=== PATIENT | female | born 1965 | race Caucasian/White ===

== ENCOUNTER → 2017-03-07 | Outpatient (CLI) | payer BC | END | disposition home or self-care (01) | LOC: C.PAPS 11:30 | PROVIDERS: ATTEND Physician Assistant | DX: Z01.419 Encounter for gynecological examination (general) (routine) without abnormal findings (principal) ==

== ENCOUNTER → 2017-03-07 | Outpatient (CLI) | payer BC ==
--- NOTE | 2017-03-07 14:37 | MAMMOGRAPHY REPORT ---
BILATERAL DIGITAL DIAGNOSTIC MAMMOGRAM TOMOSYNTHESIS WITH CAD AND TARGETED LEFT ULTRASOUND: 03/07/2017 CLINICAL HISTORY: 52-year-old woman presents after she felt a lump in the approximate 2:00 left breas t a few weeks ago. However, she no longer feels the lump. No skin erythema or nipple discharge. No family history of breast cancer. Also due for annual bilateral screening exam. TECHNIQUE: Bilateral breast tomosynthesis in addition to standard 2D mammography was performed. Curre nt study was also evaluated with a Computer Aided Detection (CAD) system. COMPARISON: Comparison is made to exams dated: 06/05/2015 mammogram, 05/06/2014 ultrasound, 05/06/20 14 mammogram, 04/23/2014 mammogram - [facility], 06/20/2012 mammogram, and 02/03/2011 mammogram - [facility]. BREAST COMPOSITION: There are scattered areas of fibroglandular density in both breasts. Mild invol utional changes comparing to more remote prior mammograms. FINDINGS: There are a few scattered benign-appearing round microcalcifications in the breasts. No ne w suspicious mass, architectural distortion or cluster of microcalcifications is seen. Targeted ultrasound was performed in the area of prior lump in the upper outer posterior left breast. Scanning of the left axilla, 1:00, 2:00 and 3:00 axes was performed. Morphologically normal lymph nodes are seen in the left axilla. No suspicious solid or cystic mass is seen within the visualized left breast. IMPRESSION: ACR BI-RADS CATEGORY 2: BENIGN, TARGETED ULTRASOUND ACR BI-RADS CATEGORY 2: BENIGN Stable bilateral mammograms. There is no mammographic or targeted sonographic evidence of malignancy in the left breast. Continued clinical follow-up is recommended, as biopsy of a clinically suspicio us mass should not be precluded by negative imaging. Otherwise, a 1 year screening mammogram is patito mmended. The patient has been verbally notified of the results. Approximately 10% of breast cancers are not detected with mammography. A negative mammographic report should not delay biopsy if a clinically suggestive mass is present. Riddhi Serrato M.D. ay/:03/07/2017 10:16:22 College Tutor: Nory ALEMAN)(Maria Esther), [facility] letter sent: Normal /2 BI-RADS Code: ACR BI-RADS Category 2: Benign Ultrasound BI-RADS: ACR BI-RADS Category 2: Benign
== END | disposition home or self-care (01) ==
LOC: C.MAMM 09:35
PROVIDERS: ATTEND Physician Assistant
DX: Z01.419 Encounter for gynecological examination (general) (routine) without abnormal findings (principal); N63 Unspecified lump in breast

== ENCOUNTER → 2017-07-21 | Outpatient (CLI) | payer BC ==
--- NOTE | 2017-07-21 17:14 | DIAGNOSTIC IMAGING REPORT ---
C-SPINE ROUTINE 4 OR 5 VIEWS CLINICAL HISTORY: 52 years-old Female presenting with CERVICALGIA, BALANCE DISORDER. TECHNIQUE: Lateral, bilateral oblique, frontal, and open-mouth odontoid views of the cervical spine were obtained. COMPARISON: None. FINDINGS: Straightening of normal cervical lordosis likely positional. Vertebral bodies maintain normal height and alignment. Mild intervertebral disc height loss noted at C5-6 and C6-7, where there are disc osteophyte complexes. Normal atlantodental interval. No prevertebral soft tissue swelling. No osseous neural foraminal narrowing. Lateral masses of C1 articulate normally with C2. No radiographic evidence of acute fracture or subluxation. IMPRESSION: Mild degenerative changes focally at C5-6 and C6-7. No acute osseous injury. Electronically signed by: Dante Mckenzie M.D. 07/21/2017 5:12 PM Dictated Date/Time: 07/21/2017 5:08 PM
== END | disposition home or self-care (01) ==
LOC: C.RAD 16:44
PROVIDERS: ATTEND Nurse Practitioner Family
DX: M54.2 Cervicalgia (principal); R26.89 Other abnormalities of gait and mobility; R20.9 Unspecified disturbances of skin sensation

== ENCOUNTER 2023-12-08 11:30 | Observation (INO) ==
--- NOTE | 2023-12-05 10:56 | Anesthesiology Consultation ---
Date of Service December 05, 2023 Assessment & Plan (1) Encounter for pre-operative examination: - Infectious disease screening: Per assessment on 12/05/23: No known infectious disease contacts or current infectious disease symptoms. No noted recent Covid positive test result. - Cardiology note (12/01/23): "Ms. Bhandari is not having any chest pain or sob. She had a stress echo within the year that was negative for ischemic disease. She is low risk for cardiac complication perioperatively. She does not need further cardiac testing prior to her surgery." - PCP visit (12/01/23): "Pt to have fractured clavicle repaired on 12/08/23.. She has brought to my attention that her father has hx of factor V mutation. Will order testing as she may need to be on anticoag post op to prevent VTE if she is not up and moving as well. I have sent message for nursing to authorize this test so we can hopefully get it done prior to her surgery on 12/08/23.. Estimated risk of adverse outcome with non-cardiac surgery very low risk.. Will addend this note once factor V testing is done and if further recommendations are warranted." - Factor V Deficiency: Recent diagnosis > Patient tested 11/2023 d/t family history (father). Per PCP note (12/06/23): "At [place]'s preop she mentions her father was positive for factor V Leiden gene. I had her tested and she is positive. I know she is having a clavicle fx repaired but still concerned that she may not be as mobile at first due to pain etc... I have sent in econsult to [facility] to see if they feel she should be anticoagulated for short period of time after surgery. I will keep you up-to-date.. as I know she is scheduled for the end of this week" - Patient acceptable risk for surgery pending final PCP recommendations (Juana CRONIN). Chart Review Chart Review: Patient NOT seen in Pre Admission Testing History Surgery Operation Date: 12/08/23 13:30 Proposed Procedures p Left Clavicle Open Reduction Internal Fixation - Clinton Andrez Frey MD Height/Weight Height: 5 ft 6 in Weight: 67.132 kg Allergies Allergy/AdvReac Type Severity Reaction Status Date / Time azithromycin AdvReac Mild Nausea Verified 12/05/23 08:09 [From Zithromax Z-Horacio] Medications Home Medications Medication Instructions Recorded Confirmed Last Taken cholecalciferol (vitamin D3) 25 25 mcg PO DAILY 12/29/22 12/05/23 Unknown mcg (1,000 unit) capsule mecobalamin (vitamin B12) 1,000 1,000 mcg PO DAILY 12/29/22 12/05/23 Unknown mcg chewable tablet venlafaxine 25 mg tablet 12.5 mg PO QAM 06/21/23 12/05/23 Unknown Past Medical History Medical History Benign paroxysmal positional vertigo Occasional, "cannot lay flat" Breast mass, left Cyst, under annual mammogram surveillance Cervical radiculopathy Cervicalgia Occasional Chronic rhinitis Closed fracture of left clavicle (11/29/23) Factor V deficiency Recent diagnosis- Patient tested 11/2023 d/t family history (father) GERD without esophagitis History of anxiety Reason for Venlafaxine recently passed unexpectedly History of colon polyps History of COVID-19 x2, symptoms resolved History of tachycardia Follows with Dr. Millicent Reddy on hold d/t nausea reaction- patient states cardio aware/recommends restarting after upcoming surgery Hx of gastroesophageal reflux (GERD) Wheatfield-Schlatter's disease of both knees Chronic knee pain (L>R) Paresthesias in left hand R/t fall/left clavicle fracture Past Family History Family History Father Factor V Leiden mutation Dyslipidemia Cancer Adverse anesthesia outcome Sister Factor V Leiden mutation Mother Hypertension Thyroid disease Denies family history of Ovarian cancer Breast cancer Colorectal cancer Past Surgical History Surgical History History of endometrial biopsy History of laparoscopy Hx of colonoscopy with polypectomy Social History Smoking Status: Never smoker Do You Dip or Chew Tobacco: No Hx Alcohol Use: No Hx Substance Use: No substance use type: does not use Testing Laboratory Results 12/04/23 WBC 6.80 H/H 13.5/39.2 PLATELETS 385 SODIUM 141 POTASSIUM 3.9 CHLORIDE 106 CO2 26 BUN 17 CREATININE 0.84 GLUCOSE 127 Electrocardiogram Date: 01/16/23 NSR at 89bpm. Mild NS STA. Chest X-Ray Date: 11/29/23 FINDINGS: Lung volumes are normal. Lungs are clear. There is no pneumothorax or pleural effusion. Cardiac size is normal. Mediastinal contours are normal. There is no evidence for pulmonary edema. There is an acute appearing comminuted displaced midshaft fracture of the left clavicle. Fracture is displaced 2.9 cm. IMPRESSION: No acute cardiopulmonary findings. Acute appearing comminuted displaced midshaft fracture of the left clavicle. Stress Test Date: 02/21/23 Negative exercise stress echo/ECG for ischemia 106% MPHR. 9.4 METS. EF 65-70%. No LVH. Other Testing Clavical x-ray, Left Date: 11/29/23 FINDINGS: Comminuted fracture of the left mid clavicle. Soft tissue swelling is seen. IMPRESSION: Comminuted fracture of the left mid third of the clavicle. Left UE US venous doppler Date: 11/29/23 FINDINGS/IMPRESSION: There is normal compressibility of the deep venous system from the forearm through the subclavian vein. Normal vascular flow is currently identified. Lymph node adjacent to the internal jugular vein measures 1.5 x 0.6 x 0.3 cm, not enlarged.
--- NOTE | 2023-12-08 11:46 | Operative Report ---
Post Operative Report Pre & Post Diagnosis Operation Date: 12/08/23 13:30 <No data on this case meets the specified criteria> I identified the patient and participated in the time-out.: Yes Procedure Operation Date: 12/08/23 13:30 <No data on this case meets the specified criteria> Surgeon Dr Frey Dishwashing Machine Operator Annabel DURBIN Estimated Blood Loss 20 Findings Consistent with Post-Op Diagnosis Specimens none Description of Procedure Pt was taken to operating room and properly positioned for procedure. Refer to anesthesia's note for anesthesia used. Pt was given pre-op antibiotics. Prepped and draped in sterile fashion. I was present during the entire case and assisted with positioning, instrumentation, closure and dressings. Please see surgeon's op report for further detail. Pt was awake and transferred to PACU in stable condition I attest to the content of the Intraoperative Record and any orders documented therein. Any exceptions are noted below.
[2023-12-08] MEDS: LR 15ML/HR IV SCH (12:22)
--- NOTE | 2023-12-08 12:48 | History & Physical Bridge Note ---
Date of Service December 08, 2023 History & Physical Bridge Note I have examined the patient, reviewed the History & Physical and in the interval since the performance of the History & Physical I have noted the following changes of clinical significance: no changes noted other than recent diagnosis for Factor V Leiden
[2023-12-08] MEDS ORDERED: fentaNYL citrate PF 100 MCG/2 ML VIAL ONE (12:55)
[2023-12-08] MEDS ORDERED: MIDAZOLAM HCL 1 MG/ML 2ML VIAL ONE (12:55)
[2023-12-08] MEDS ORDERED: FLUMAZENIL 0.1 MG/1 ML 10 ML VIAL IV PRN (13:01)
[2023-12-08] MEDS ORDERED: PROMETHAZINE HCL 6.25 MG in SODIUM CHLORIDE 0.9% 50 ML IV PRN (13:01)
[2023-12-08] MEDS ORDERED: NALOXONE HCL 0.4 MG/1 ML VIAL/CARP IV PRN ×2 (13:01→19:02)
[2023-12-08] MEDS ORDERED: ePHEDrine sulfate 50 MG/ML AMP IV PRN (13:01)
[2023-12-08] MEDS ORDERED: HYDROmorphone INJ 1 MG/ML SYRINGE IV PRN (13:01)
[2023-12-08] MEDS ORDERED: ATROPINE SULFATE 0.1 MG/ML 10ML SYR IV PRN (13:01)
[2023-12-08] MEDS ORDERED: fentaNYL citrate PF 100 MCG/2 ML VIAL IV PRN (13:01)
[2023-12-08] MEDS: ceFAZolin 2000MG 2,000 MG/15 ML SYR IV SCH (13:27)
[2023-12-08] MEDS ORDERED: DexMEDEtomidine HCL IV 100 MCG/ML VIAL IV ONE (13:38)
[2023-12-08] MEDS ORDERED: PROPOFOL IV EMULSION 10 MG/ML 20 ML VIAL IV ONE (13:48)
[2023-12-08] MEDS ORDERED: ONDANSETRON INJ 2 MG/ML 2 ML VIAL ONE (13:48)
[2023-12-08] MEDS ORDERED: HYDROmorphone INJ 2 MG/ML SYR/VIAL ONE (13:48)
[2023-12-08] MEDS ORDERED: ROCURONIUM BROMIDE 10 MG/ML 5 ML VIAL IV ONE (13:48)
[2023-12-08] MEDS ORDERED: DEXAMETHASONE SOD INJ 4 MG/ML VIAL ONE (13:48)
[2023-12-08] MEDS ORDERED: KETAMINE HCL 10MG/ML SYR ONE (13:51)
[2023-12-08] MEDS: BUPIVACAINE 0.5 % 5 MG/1 ML MPF 30ML VIAL ONE (14:05)
[2023-12-08] MEDS ORDERED: PHENYLEPHRINE 100MCG/ML 10ML SYR IV ONE (14:06)
[2023-12-08] MEDS ORDERED: SUGAMMADEX SODIUM 200 MG/2 ML VIAL IV ONE (15:15)
--- NOTE | 2023-12-08 15:42 | Post Operative Brief Note ---
Immediate Post Op Note v1 Date of Surgery December 08, 2023 Pre & Post Diagnosis Operation Date: 12/08/23 13:30 Pre-Op Diagnosis: Left Midshaft Clavicle Fracture Post-Op Diagnosis: Left Midshaft Clavicle Fracture I identified the patient and participated in the time-out.: Yes Procedure Operation Date: 12/08/23 13:30 Actual Procedures p Left Clavicle Open Reduction Internal Fixation(Left) - Clinton Frey MD Surgeon Clinton Frey MD Tag Meter Operator A MD Genny & M ZEESHAN Mata Estimated Blood Loss 50 Findings Consistent with Post-Op Diagnosis Fluids 1200 cc Anesthesia Type General Complications none
--- NOTE | 2023-12-08 15:44 | Operative Report ---
Post Operative Report Pre & Post Diagnosis Operation Date: 12/08/23 13:30 Pre-Op Diagnosis: Left Midshaft Clavicle Fracture, comminuted, Z-pattern Post-Op Diagnosis: Left Midshaft Clavicle Fracture, comminuted, Z-pattern I identified the patient and participated in the time-out.: Yes Procedure Operation Date: 12/08/23 13:30 Actual Procedures p Left Clavicle Open Reduction Internal Fixation(Left) - Clinton Frey MD Surgeon Clinton Frey MD Feller Operator A MD Genny & M ZEESHAN Mata Estimated Blood Loss 50 Findings See Below Left mid-shaft clavicle fracture, comminuted with 2 small butterfly fragments, in a displaced Z-pattern Fluids 1200 cc Specimens n/a Anesthesia Type General Complications none Indications The patient is a pleasant 58-year-old female, who fell and injured their left clavicle. Their treatment options of conservative surgical intervention were discussed. The risks of surgery include but not limited to: Infection, bleeding, nerve damage, need for repeat surgery, damage to nerves and arteries, mal-union, nonunion, decreased level of activity, deep vein thrombosis, and a pneumothorax. The patient wanted to proceed with surgery and the informed consent was signed. Description of Procedure IMPLANTS: 1) 8 hole mid-shaft clavicle plate (Arthrex). 2) 3.5 mm cortical screws (12 & 14 mm). 3) 3.5 mm locking screws (12 x 3, 18 mm). PROCEDURE: The patient was taken to the operating room following administration of general anesthesia. The patient was placed in the beach chair position. Fluoroscopy was brought in to ensure that the x-rays could be obtained during the case. Once the patient was properly positioned, a multidisciplinary time-out was performed identifying the proper patient and left upper extremity as the correct and operative limb. The upper extremity was prepped and draped in the usual orthopedic sterile fashion. 2 g of intravenous Ancef were given prior to any incisions being made. The clavicle fracture was easily identified and marked, as well as the acromion, AC and SC joints. The planned incision approximately 10 cm long was marked as well and injected with a 50-50 mixture of 1% lidocaine plain and 0.5% Marcaine with epinephrine for a total of 10 cc. Sharp dissection was performed and the medial fragment was easily identified and exposed first. Any hematoma and callus was removed from the fracture ends with irrigation, rongeur, and dental pick. The wound was copiously irrigated. The 2 butterfly fragments were anterior, the larger of the 2 still had soft tissue attachment. The smaller fragment was removed and cut into smaller pieces to be used as bone graft at the end of the case. The lateral fracture fragment was inferior to the medial fragment and was exposed. After the 2 ends were exposed, using a lion-jaw clamp on the medial fragment and a pointed reduction clamp on the lateral fragment these were reduced, a K wire was placed to provide temporary fixation. A plate was selected and was contoured to fit the clavicle and 2 be-be tacks were used to hold the plate in place. Fluoroscopy was brought in to ensure proper placement of the plate and near anatomic reduction. Once this was achieved, the screws were placed, starting with a 3.5 mm non-locking screws on the medial fragment followed by one in the lateral fragment. The 3.5 locking screws were placed in the remainder of the lateral holes in the plate and then 3.5 mm locking screw were placed in the most medial holes of the plate. The wounds were again copiously irrigated. An 0 vicryl suture was used to cerclage the remaining inferior butterfly fragment in place. Final x-rays were obtained. The wound was again copiously irrigated. The deep tissue overlying the bone and plate was closed with 0 and 2-0 Vicryl. The platysma was closed with 3-0 Vicryl as was the subcutaneous layer. ZipLine and shield were used in standard fashion to close the skin. The incision was covered with 4 x 4's and Tegaderm. The patient was placed in a sling. The patient was awakened and taken to the recovery room in stable condition. POSTOPERATIVE INSTRUCTIONS: The patient will avoid any heavy lifting. The patient will take pain medicine as needed. Due to their recent Factor V Leiden diagnosis they will start Eliquis tonight and continue for 2 weeks for DVT prophylaxis. The patient will will start PT next week. The patient will follow- up in 10-14 days in the office. I attest to the content of the Intraoperative Record and any orders documented therein. Any exceptions are noted below.
[2023-12-08] MEDS ORDERED: NEOSTIGMINE METHYLSULFATE 1 MG/ML 10ML VIAL ONE (15:55)
[2023-12-08] MEDS ORDERED: GLYCOPYRROLATE 0.2 MG/ML VIAL ONE (15:55)
[2023-12-08] MEDS: LIDOCAINE 1%/EPINEPHRINE 1:100,000 20 ML VIAL ONE (16:05)
--- NOTE | 2023-12-08 16:06 | Fluoroscopy Report ---
INTRAOPERATIVE RADIOGRAPHS CLINICAL HISTORY: Open reduction and internal fixation of the left clavicle. Fluoro time: 6 seconds Ka,r: 0.25 mGy FINDINGS: 2 spot fluoroscopic views of the left clavicle are correlated with radiographs dated 11/29/19 24. There has been buttress plate fixation of a left clavicular shaft fracture with advent of ne ar-anatomic alignment. 6 cortical screw transfix the plate. Overlying soft tissue edema is noted. An endotracheal tube is in place. IMPRESSION: Intraoperative images from open reduction and internal fixation of a left clavicular shaf t fracture as above. Electronically signed by: Jhonny Saxena M.D. 12/08/2023 4:04 PM
[2023-12-08] MEDS ORDERED: oxyCODONE/ACETAMINOPHEN 5mg/325mg TAB PO PRN (16:24)
--- NOTE | 2023-12-08 16:24 | Operative Report ---
Post Operative Report Pre & Post Diagnosis Operation Date: 12/08/23 13:30 Pre-Op Diagnosis: Left Midshaft Clavicle Fracture Post-Op Diagnosis: Left Midshaft Clavicle Fracture I identified the patient and participated in the time-out.: Yes Procedure Operation Date: 12/08/23 13:30 Actual Procedures p Left Clavicle Open Reduction Internal Fixation(Left) - Clinton Andrez Frey MD Surgeon Dr Frey Corrugator Operator A MD Genny & M ZEESHAN Mata Estimated Blood Loss 50 Findings Consistent with Post-Op Diagnosis Specimens none Description of Procedure Pt was taken to operating room and properly positioned for procedure. Refer to anesthesia's note for anesthesia used. Pt was given pre-op antibiotics. Prepped and draped in sterile fashion. I was present during the entire case and assisted with positioning, instrumentation, closure and dressings. Please see surgeon's op report for further detail. Pt was awake and transferred to PACU in stable condition I attest to the content of the Intraoperative Record and any orders documented therein. Any exceptions are noted below.
--- NOTE | 2023-12-08 16:34 | Operative Report ---
Post Operative Report Pre & Post Diagnosis Operation Date: 12/08/23 13:30 Pre-Op Diagnosis: Left Midshaft Clavicle Fracture Post-Op Diagnosis: Left Midshaft Clavicle Fracture I identified the patient and participated in the time-out.: Yes Procedure Operation Date: 12/08/23 13:30 Actual Procedures p Left Clavicle Open Reduction Internal Fixation(Left) - Clinton Frey MD Surgeon Clinton Frey MD Level Vial Inspector A MD Genny & M ZEESHAN Mata Estimated Blood Loss 50 Findings Consistent with Post-Op Diagnosis Same as postoperative diagnosis Specimens None Description of Procedure Please see detailed operative note. I attest to the content of the Intraoperative Record and any orders documented therein. Any exceptions are noted below.
[2023-12-08] MEDS: ONDANSETRON INJ 2 MG/ML 2 ML VIAL IV PRN (17:01)
--- NOTE | 2023-12-08 17:58 | Anesthesiology Progress Note ---
Date of Service December 08, 2023 Anesthesia Post Procedure Vital Signs Vital Signs: Temp Pulse Pulse Resp BP Pulse Ox O2 Del Method 12/08/23 17:15 84 15 120/65 96 Room Air 12/08/23 17:05 68 16 115/67 93 Room Air 12/08/23 16:55 37.2 C 71 15 122/72 93 Room Air 12/08/23 16:45 73 16 121/73 94 Room Air 12/08/23 16:35 76 16 122/68 100 Oxymask 12/08/23 16:25 98 H 17 122/74 100 Oxymask 12/08/23 16:19 36 C L 91 H 21 130/76 98 Oxymask 12/08/23 12:06 36.8 C 106 H 20 124/84 98 Room Air O2 Flow Rate 12/08/23 17:15 12/08/23 17:05 12/08/23 16:55 12/08/23 16:45 12/08/23 16:35 7 12/08/23 16:25 14 12/08/23 16:19 14 12/08/23 12:06 Pain Intensity Left Clavicle: Pain Intensity: 4 Transfer of Care Handoff Completed per policy Notes Mental Status: alert / awake / arousable and participated in evaluation Patient Amnestic to Procedure: Yes Nausea / Vomiting: adequately controlled Pain: adequately controlled Airway Patency, RR, SpO2: stable & adequate BP & HR: stable & adequate Hydration State: stable & adequate Anesthetic Complications: no major complications apparent and Pt Satisfied with anesthetic care
[2023-12-08] MEDS ORDERED: MAGNESIUM HYDROXIDE SUSP 30 ML UDC PO PRN (19:02)
[2023-12-08] MEDS ORDERED: oxyCODONE HCL IR 5 MG TAB (IMMEDIATE RELEASE) PO PRN (19:02)
[2023-12-08] MEDS ORDERED: METOCLOPRAMIDE HCL INJ 5 MG/ML 2 ML VIAL IV PRN (19:02)
[2023-12-08] MEDS ORDERED: ONDANSETRON INJ 2 MG/ML 2 ML VIAL IV PRN (19:02)
[2023-12-08] MEDS ORDERED: bisacodyL 10 MG SUPP PR PRN (19:02)
[2023-12-08] MEDS: SODIUM CHLORIDE 0.9% 1,000 ML IV SCH (21:09)
[2023-12-08] MEDS: SENNA 8.6 MG TAB PO SCH (21:13)
[2023-12-08] MEDS: DOCUSATE SODIUM 100 MG CAP PO SCH (21:13)
[2023-12-08] MEDS: CHOLECALCIFEROL 25 MCG (1000 UNITS) TAB PO SCH (21:13)
[2023-12-08] MEDS: APIXABAN 2.5 MG TAB PO SCH (21:13)
[2023-12-08] MEDS: ACETAMINOPHEN 500 MG TAB PO SCH (21:13)
--- NOTE | 2023-12-08 22:11 | Hospitalist Consultation ---
Date of Consultation December 08, 2023 Assessment & Plan (1) Dizziness: - Post-operatively with nausea- has since resolved - EKG with NSR; rate of 88 - Does have noted history of BPPV - Labs reviewed in [facility] system from 12/03- CBC/CMP wnl- will plan to repeat - Zofran prn for nausea (2) History of tachycardia: - noted history of sinus tachycardia/NSVT - follows with cardiology - has been on diltiazem in the past, but not currently taking (3) Factor V deficiency: - tested positive on labs prior to surgery- heterozygous factor V Leiden mutation - per chart review in [facility] system- it was discussed that post op thromboprophylaxis generally would not be required unless, extenuating factor such as prolonged immobility - patient on Eliquis 2.5mg BID (4) Closed fracture of left clavicle: - post-op day 0 from open reduction and internal fixation - Pain management per primary team (5) History of anxiety: - continue venlafaxine Supervising Physician Co-Signing Physician Notes Attending addendum: I have supervised the medical residents activities, and agree with the H&P unless as otherwise noted. Assessment and Plan: Dizziness- Noted postoperatively Symptoms for the most part have resolved at this time Order postop laboratories Factor V Leiden- Continue Eliquis Unlikely associated PE, but if persistent tachycardia following IV fluid rehydration can consider CTA PE protocol Status post open reduction and internal fixation fracture of left clavicle- Postop earlier in the day Pain management per primary team History of Present Illness Attending Physician: Clinton Frey MD History of Present Illness 58 year old female with a past medical history of Factor V Leiden, sinus tachycardia/NSVT (follows with [facility]) post-op day 0 from left clavicle open reduction and internal fixation. Post-operatively she was having some nausea which was accompanied by dizziness. Notes that she felt like the room was spinning. Denies dyspnea, chest pain. Nausea has improved somewhat with Zofran and dizziness has resolved. Denies weakness, change in sensation. Notes pain in left UE. Tolerating good fluid intake, was eating crackers when I went up to see her. Overall feeling significantly better from earlier. Allergies Allergy/AdvReac Type Severity Reaction Status Date / Time azithromycin AdvReac Mild Nausea Verified 12/08/23 12:02 [From Zithromax Z-Horacio] Home Medications Medication Instructions Recorded Confirmed Type cholecalciferol (vitamin D3) 25 25 mcg PO DAILY 12/29/22 12/08/23 History mcg (1,000 unit) capsule mecobalamin (vitamin B12) 1,000 1,000 mcg PO DAILY 12/29/22 12/08/23 History mcg chewable tablet venlafaxine 25 mg tablet 12.5 mg PO QAM 06/21/23 12/08/23 History Patient History Medical History Benign paroxysmal positional vertigo Occasional, "cannot lay flat" Breast mass, left Cyst, under annual mammogram surveillance Cervical radiculopathy Cervicalgia Occasional Chronic rhinitis Closed fracture of left clavicle (11/29/23) Factor V deficiency Recent diagnosis- Patient tested 11/2023 d/t family history (father) GERD without esophagitis History of anxiety Reason for Venlafaxine recently passed unexpectedly History of colon polyps History of COVID-19 x2, symptoms resolved History of tachycardia Follows with Dr. Millicent Reddy on hold d/t nausea reaction- patient states cardio aware/recommends restarting after upcoming surgery Hx of gastroesophageal reflux (GERD) Carolina-Schlatter's disease of both knees Chronic knee pain (L>R) Paresthesias in left hand R/t fall/left clavicle fracture Surgical History History of endometrial biopsy History of laparoscopy Hx of colonoscopy with polypectomy Family History Father Factor V Leiden mutation Dyslipidemia Cancer Adverse anesthesia outcome Sister Factor V Leiden mutation Mother Hypertension Thyroid disease Denies family history of Ovarian cancer Breast cancer Colorectal cancer Social History Smoking Status: Never smoker Second Hand Exposure: No; Do You Dip or Chew Tobacco: No; Hx Alcohol Use: No Hx Substance Use: No Preferred Language: Thai Communication Ability: Effective Independent Sales Representative Required: No Beliefs That Will Affect Care: None Current Living Situation: Alone Feels Safe at Home: Yes Assistive Devices: Glasses Review of Systems Review of Systems: As per above Physical Exam Physical Exam: Constitutional: well-appearing, no acute distress HEENT: NCAT, no conjunctival injection CV: regular rhythm, no murmur appreciated, extremities well-perfused, no LE edema Resp: CTABL, no wheezes/rales/rhonchi appreciated, no increased work of breathing GI: soft, nondistended, nontender MSK: no gross deformities appreciated Skin: warm, dry, no rash appreciated Neuro: alert, oriented, no focal neurologic deficit appreciated Results & Data Results & Data Vital Signs (Past 12 Hours) Vital Signs Temp Pulse Pulse Resp BP Pulse Ox O2 Del Method 12/08/23 19:40 36.8 C 83 16 125/78 93 Room Air 12/08/23 19:25 37.1 C 86 17 128/73 95 Room Air 12/08/23 18:25 77 17 121/72 96 Room Air 12/08/23 17:55 75 20 124/72 95 Room Air 12/08/23 17:25 37.1 C 86 18 123/61 93 Room Air 12/08/23 17:15 84 15 120/65 96 Room Air 12/08/23 17:05 68 16 115/67 93 Room Air 12/08/23 16:55 37.2 C 71 15 122/72 93 Room Air 12/08/23 16:45 73 16 121/73 94 Room Air 12/08/23 16:35 76 16 122/68 100 Oxymask 12/08/23 16:25 98 H 17 122/74 100 Oxymask 12/08/23 16:19 36 C L 91 H 21 130/76 98 Oxymask 12/08/23 12:06 36.8 C 106 H 20 124/84 98 Room Air O2 Flow Rate 12/08/23 19:40 12/08/23 19:25 12/08/23 18:25 12/08/23 17:55 12/08/23 17:25 12/08/23 17:15 12/08/23 17:05 12/08/23 16:55 12/08/23 16:45 12/08/23 16:35 7 12/08/23 16:25 14 12/08/23 16:19 14 12/08/23 12:06
--- NOTE | 2023-12-09 06:36 | Orthopedic Progress Note ---
Date of Service December 09, 2023 Assessment & Plan (1) Closed fracture of left clavicle: Plan: POD #1 s/p ORIF L clavicle, was admitted overnight due to dizziness and inability to ambulate, feeling much better now. Resume diet. WBAT BLE, NWB LUE. Sling for comfort OOB to chair. Continue pain control, using Tylenol. DVT prophylaxis: TEDs 3 weeks, foot pumps while in hospital, Eliquis 2.5 mg BID for 2 weeks, as recently diagnosed with Factor V Leiden. PT/OT. D/C planning for home later today if passes PT. Will follow up in the office for PT and post-op appointments as scheduled. Present on Admission?: Yes Admission and Anticipated Discharge Date Admission Date: December 08, 2023 Subjective Feeling much better, no longer dizzy, pain controlled with Tylenol Physical Exam Physical Exam: AAO x 4 LUE: Dressing is clean, dry, intact. Sensation to Light touch intact distally. Motor to median, radial, ulnar, AIN, PIN, Musculocutaneous intact. 2+ radial pulse. + Bruising along the chest. Minimal swelling around the clavicle. Results & Data Vital Signs (Past 12 Hours) Vital Signs Temp Pulse Resp BP Pulse Ox O2 Del Method 12/09/23 03:06 36.9 C 103 H 16 106/69 96 Room Air 12/08/23 23:08 36.8 C 102 H 16 114/75 96 Room Air 12/08/23 19:40 36.8 C 83 16 125/78 93 Room Air 12/08/23 19:25 37.1 C 86 17 128/73 95 Room Air Laboratory Results 12/09/23 Range/Units 06:24 WBC 11.03 H (4.8-10.8) K/ul RBC 3.72 L (4.20-5.40) M/uL Hgb 11.5 L (12.0-16.0) g/dl Hct 33.3 L (37.0-47.0) % MCV 89.5 (80.0-100.0) fL MCH 30.9 (25.0-34.0) pg MCHC 34.5 (32.0-36.0) g/dL RDW Std Deviation 40.2 (36.4-46.3) fL RDW Coeff of Sarah 12.3 (11.5-14.5) % Plt Count 326 (130-400) K/uL MPV 9.4 (9.4-12.4) fL Immature Gran % (Auto) 0.3 % Neut % (Auto) 69.8 % Lymph % (Auto) 15.9 % Taylor % (Auto) 13.8 % Eos % (Auto) 0.0 % Baso % (Auto) 0.2 % Neut # (Auto) 7.71 H (1.40-6.50) K/uL Lymph # (Auto) 1.75 (1.20-3.40) K/uL Taylor # (Auto) 1.52 H (0.11-0.59) K/uL Eos # (Auto) 0.00 (0.00-0.50) K/uL Baso # (Auto) 0.02 (0.00-0.20) K/uL Immature Gran # (Auto) 0.03 (0.01-0.20) K/uL Sodium 136 (136-145) mmol/L Potassium 4.0 (3.5-5.1) mmol/L Chloride 104 (98-107) mmol/L Carbon Dioxide 25 (21-32) mmol/L Anion Gap 7 (3-11) BUN 14 (6-23) mg/dl Creatinine 0.76 (0.6-1.2) mg/dl Est Cr Clr Drug Dosing 74.6 ml/min Est GFR ( Amer) 99.5 ml/min Est GFR (Non-Af Amer) 85.9 ml/min BUN/Creatinine Ratio 18.4 (10-20) Glucose 118 H (70-99(Fasting)) mg/dl Calcium 9.1 (8.6-10.3) mg/dl Magnesium 1.9 (1.7-2.4) mg/dl Total Bilirubin 0.8 (0.2-1.0) mg/dl AST 13 (13-39) U/L ALT 12 (7-52) U/L Alkaline Phosphatase 56 (34-104) U/L Total Protein 6.1 (6.0-8.3) gm/dl Albumin 3.8 (3.4-5.0) gm/dl Globulin 2.3 L (2.5-4.0) gm/dl Albumin/Globulin Ratio 1.7 (0.9-2) Diagnostic Findings Impressions Clavicle X-Ray 12/08/23 13:30 INTRAOPERATIVE RADIOGRAPHS CLINICAL HISTORY: Open reduction and internal fixation of the left clavicle. Fluoro time: 6 seconds Ka,r: 0.25 mGy FINDINGS: 2 spot fluoroscopic views of the left clavicle are correlated with radiographs dated 11/29/2023. There has been buttress plate fixation of a left clavicular shaft fracture with christian of near-anatomic alignment. 6 cortical screw transfix the plate. Overlying soft tissue edema is noted. An endotracheal tube is in place. IMPRESSION: Intraoperative images from open reduction and internal fixation of a left clavicular shaft fracture as above. Electronically signed by: Jhonny Saxena M.D. 12/08/2023 4:04 PM
[2023-12-09 07:08] LABS: Basophils # (auto) 0.02 K/uL (0.00-0.20); Basophils % (auto) 0.2 %; Hematocrit (blood only) 33.3 % (37.0-47.0); Hemoglobin 11.5 g/dl (12.0-16.0); Immature Granulocytes # (auto) 0.03 K/uL (0.01-0.20); Immature Granulocytes % (auto) 0.3 %; Lymphocytes # (auto) 1.75 K/uL (1.20-3.40); Lymphocytes % (auto) 15.9 %; Mean Corpuscular Hemoglobin 30.9 pg (25.0-34.0); Mean Corpuscular Hgb Conc 34.5 g/dL (32.0-36.0); Mean Corpuscular Volume 89.5 fL (80.0-100.0); Mean Platelet Volume 9.4 fL (9.4-12.4); Monocytes # (auto) 1.52 K/uL (0.11-0.59); Monocytes % (auto) 13.8 %; Neutrophils # (auto) 7.71 K/uL (1.40-6.50); Neutrophils % (auto) 69.8 %; Platelet Count 326 K/uL (130-400); RDW Coefficient of Variation 12.3 % (11.5-14.5); RDW Standard Deviation 40.2 fL (36.4-46.3); Red Blood Count 3.72 M/uL (4.20-5.40); White Blood Count 11.03 K/ul (4.8-10.8)
[2023-12-09 07:22] LABS: Albumin Globulin Ratio 1.7 (0.9-2); Albumin Level 3.8 gm/dl (3.4-5.0); BUN Creatinine Ratio 18.4 (10-20); Bilirubin,Total 0.8 mg/dl (0.2-1.0); Calcium 9.1 mg/dl (8.6-10.3); Creatinine Clr Calc Pharmacy 74.6 ml/min; Est GFR (African American) 99.5 ml/min; Est GFR (Non-African American) 85.9 ml/min; Globulin 2.3 gm/dl (2.5-4.0); Magnesium 1.9 mg/dl (1.7-2.4); Total Protein 6.1 gm/dl (6.0-8.3)
[2023-12-09] MEDS: CYANOCOBALAMIN (B-12) 500 MCG TABLET PO SCH (08:29)
[2023-12-09] MEDS: VENLAFAXINE HCL 50 MG TAB PO SCH (08:29)
[2023-12-09] MEDS: MULTIVITAMIN TAB PO SCH (08:29)
--- NOTE | 2023-12-09 10:42 | Electrocardiogram Report ---
Test Reason : Blood Pressure : / mmHG Vent. Rate : 088 BPM Atrial Rate : 088 BPM P-R Int : 162 ms QRS Dur : 082 ms QT Int : 362 ms P-R-T Axes : 069 047 053 degrees QTc Int : 438 ms Normal sinus rhythm with sinus arrhythmia Normal ECG When compared with ECG of 22-MAR-2019 21:14, No significant change was found Confirmed by Kalia Monroy ([id number]) on 12/09/2023 10:42:04 AM Referred By: Clinton Fery Confirmed By:Kalia Monroy
--- OUTSIDE RECORDS SUMMARY | 2023-12-09 17:43 | External Medical Summary | Continuity of Care Document ---
Author Name Unknown Organization [id number] Address [address] [place] [id number] Care Team Providers Care Form Raiser Name Role Phone Juana Bustos Primary Care Physician [phone] Encounter [facility] [id number] Date(s): 11/30/23 - 11/30/23 [facility] [employer] [place] [id number] [address] [place] [id number] Encounter Diagnosis Clavicle fracture(Discharge Diagnosis) - 11/30/23 Discharge Disposition: Home or Self Care Attending Physician: MD Tk, Clinton Maguire Allergies, Adverse Reactions, Alerts Substance Reaction Severity Status azithromycin Nausea Generalized aches and pains Active Assessment and Plan Extracted from: Title:Clinton Frey Author:Mita Hassan Date:11/30/23 Impression:[id number] male with midshaft left clavicle fracture, Z-type, comminuted, displaced, initial visit, DOI 11/27/2023 Plan: After a lengthy discussion with the patient today regarding my above clinical findings, as well as reviewing their imaging with them, their treatment options of conservative management versus surgical intervention were discussed. - The risk and benefits of each were discussed. - The risks of surgery included but not limited to: Infection, bleeding, nerve damage, continued pain, progression of arthritis, stiffness, malunion, nonunion,failure of the hardware, and deep vein thrombosis. They would like to proceed with surgery and informed consent was signed for left clavicle ORIF. - They will speak with mysurgery chief crew scheduler and have a history and physical examination performed. - Patient understands to obtain clearance from her PCP and cardiologistprior to surgery. The patient understood all my instructions and explanation: all their questions were satisfactorily addressed. Immunizations Given and Recorded Vaccine Date Status Refusal Reason tetanus/diphtheria/pertuss, acel (Tdap) 1 05/11/15 Recorded 1Result Comment: 2020-03-10: Historical information-source unspecified Medications dilTIAZem 30 mg oral tablet Start: 06/13/23 16:01:00 EST, 1 tab, PO, bid, Disp# 180 tab, Refills: 3, Pharmacy: [email or web address] Start Date: 06/13/23 Status: Ordered loratadine Start: 04/04/23 14:56:00 EDT, 5 mg =, PO, Daily, PRN: as needed for allergy symptoms Start Date: 04/04/23 Status: Ordered venlafaxine 25 mg oral tablet Start: 11/14/23 7:55:00 EDT, 0.5 tab, PO, Daily, Disp# 45 tab, Refills: 1, Pharmacy: [facility] Start Date: 11/14/23 Status: Ordered Vitamin B12 50 mcg oral tablet Start: 12/01/23 15:56:00 EDT, 1 tab, PO, Daily Start Date: 12/01/23 Status: Ordered Vitamin D3 Start: 11/29/22 14:41:00 EDT, 50 mcg =, PO, Daily Start Date: 11/29/22 Status: Ordered Mental Status 11/30/23 Barriers to Learning one year None evide nt Mandatory Health Literacy Documentation Yes Health Literacy Communication Barriers N ever Primary Language Icelandic Problem List Condition Confirmation Course Effective Dates Status Health St atus Informant Fall Confirmed 07/2021 Active Ataxia Confirmed Active Family history of factor V deficiency Confirmed Active Fatigue Confirmed Active Fracture of left clavicle Confirmed Active Chronic GERD Confirmed Active Neuritis Confirmed Active Nodule of right lung Confirmed Active Cervicalgia Confirmed Active Disturbance of skin sensation Confirmed Active Diagnosis Diagnosis Type Effective Dates Health Status Cl inical Service Informant Clavicle fracture Discharge Diagnosis 11/30/23 Procedures Procedure Date Related Diagnosis Body Site Status Diagnostic mammogram 1 01/26/23 Co mpleted MRI of brain 2 08/18/[address] Diagnostic w/o con 3 04/01/22 Completed CXR - Chest X-ray 4 08/10/21 Compl eted X-ray of cervical spine 5 08/10/21 Completed Screening mammogram of bilat eral breasts 6 03/16/[address] of chest without contrast 7 02/24/21 Completed Shave biopsy and cauterizati on of skin 8 03/11/20 Completed Colonoscopy 9, 10 03/03/[address] of chest 11 02/28/20 Completed X-ray of fingers 12 01/30/20 Compl eted Angiogram chest CTA 13 03/23/19 Co mpleted Mammogram 14 06/04/18 Completed X-ray of cervical spine 15 07/21/17 Completed 1IMPRESSION: ACR BI-RADS CATEGORY 1: NEGATIVE, ULTRASOUND ACR BI-RADS CATEGORY 1: NEGATIVE No suspicious mammographic or sonographic abnormality in the left lateral breast in the region of intermittent tenderness reported by the patient. There is no mammographic or targeted sonographic evidence of mlignancy. Recommend clinical follow-up for left breast tenderness, and recommend routine bilateral screening mammograms in 1 year. 2Conclusion: No acute intracranial pathology. An 8 mm rounded area of fluid signal intensity is seen in the sella turcica on the right suggestinga pituitary cyst. A microadenoma cannot be completely excluded. 31. No acute intrathoracic abnormality. 2. Stable subcentimeter solid pulmonary nodules include a 7mm fissural nodule of the right middle lobe suggestive of a benign lymph node. Findings are unchanged dating back to the 2019 study. With greather than 3 years of stability these nodules require no additional follow-up. 3. Nonspecific increased attenuation of the unenhanced liver. No evidene of cirrhosis. Differentialconsiderations would include amiodarone toxicity, iron or copper deposition among other etiologies. 4No acute abnormalities and in particular no evidence of right apical mass. 5IMPRESSION: No acute abnormality. Degenerative disc and degenerative joint disease. 6Impression: ACR BI-RADS CATEGORY 2: BENIGN There is no mammographic evidence of malignancy. A 1 year screening mammogram is recommended (03/17/2022). The patient will receive written notification of the results. 7IMPRESSION: No significant change in several low suspicion right lung nodules since CT of 03/22/2019. Theses arelikely benign. An additional follow-up chest CT in one year is recommended to ensure stability 8left palmar thumb 9COLO to cecum, 1 cm rectal polyp hot snared, 10Repeat in 3 years. 11Impression: 1 mm interval in the size of a very low suspicion 7x4 mm right upper lobe perifissural nodule Stable 3 mm solid right upper lobe pulmonary nodule New 2 mm solid nodule within the superior segment of the right lower lobe. 12 Month f/u is recommended. 12Mild soft tissue swelling without acute osseous abnormality or opaque foreign body. Left thumb. 131. No evidence of pulmonary embolus. 2. A 6 mm nodule along the right minor fissure. This is likely benign given the location. However, f/u is recommended. 14There is no mammographic evidence of malignancy. A 1 year screening mammogram is recommneded. (06/05/2019) The patient will receive written notification of the results. 15Mild degenerative changes focally at C5-6 and C6-7. No acute osseous injury Vital Signs Most recent to oldest [Reference Range]: 1 Height 171 cm (11/30/23 12:54 PM) Patient Weight 68 kg (11/30/23 12:54 PM) Body Mass Index 23.26 kg/m2 (11/30/23 12:54 PM) Social History Social History Type Response Smoking Status Never smoked cigaret tri Sex Female Ortho Outpt Note * MD Tk, Clinton A: MODIFY MD Tk, Clinton A: MODIFY, MODIFY Event Display: Ortho Outpt Note Authored Date: [id number] Primary Care Provider ROSEANNE Bustos Tara Chief Complaint Left clavicle fracture History of Present Illness IpvmusAPzrofbrvadpke-slja-jtztjlmh 38-gdrc-[id number] presents today with her lbsqrnze-op-sqx for a left clavicle fracture. She fell in a 5- foot hole on 11/27/2023 and has previously broken her left clavicle about 35 years ago. Patient has muscle achiness and soreness but is not in pain. She has had numbness in her fingers and went to the ER yesterday. Patient has been stretching her elbow. She sees a card grader for mild tachycardia. 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 Sheis not on any blood thinners and reports relief with Tylenol.Patient has been sleeping in a recliner. Today she rates her pain as a 4/10. Review of Systems A 14 point review of systems isavailable in the EMR. Physical Exam Vitals & Measurements HT:171cm WT:68kg WT:68.000kg(Dosing) BMI:23.26 Focusing on the patient'sleftupper extremity: 2+ radial pulse Slightly diminished sensation to the thumb and index finger Motor to the median, radial, ulnar, AIN, PIN, musculocutaneous nervesis intact Full range of motion of their elbow, forearm, and wrist Able to externally rotate, abduct, and extend shoulder Able to palpate the medial edge of the fracture Skin is otherwise intact. Diagnostic Results X-ray imaginviews of theleft clavicle and several views of the left shoulderobtained on 11/29/2023 at [facility]reviewed by me show displaced Z- type deformity clavicle fracture that is comminuted, butterfly fracture consisting of 2 components. Left shouldermultiple viewsalso obtained 11/29/2023 atMNERshowed thedisplaced Z-typedeformity, clavicle fracture. Assessment/Plan Impression:[id number] with midshaft left clavicle fracture, Z-type, comminuted, displaced, initial visit, DOI 11/27/2023 Plan: After a lengthy discussion with the patient today regarding my above clinical findings, as well as reviewing their imaging with them, their treatment options of conservative management versus surgical intervention were discussed. - The risk and benefits of each were discussed. - The risks of surgery included but not limited to: Infection, bleeding, nerve damage, continued pain, progression of arthritis, stiffness, malunion, nonunion,failure of the hardware, and deep veinthrombosis. They would like to proceed with surgery and informed consent was signed for left clavicle ORIF. - They will speak with mysurgery chief crew scheduler and have a history and physical examination performed. - Patient understands to obtain clearance from her PCP and cardiologistprior to surgery. The patient understood all my instructions and explanation: all their questions were satisfactorilyaddressed. Attestation I, Mita Hassan, have scribed for, and in the presence of, Clinton Frey, on this date,3:36:12. I, Dr. Frey, saw and examined the patient with Mita Hassan acting as my scribe. I reviewed the note and agree with the documented findings and the plan of care I developed. Problem List/Past Medical History Ongoing Ataxia Cervicalgia Chronic GERD Disturbance of skin sensation Fall Fatigue Fracture of left clavicle Neuritis Nodule of right lung Tingling sensation Historical Acute recurrent sinusitis Earache symptoms in right ear Fever Great toe pain Nonhealing skin ulcer Pain in heel Rash and nonspecific skin eruption Procedure/Surgical History Diagnostic mammogram| Service Date: 01/26/2023MRI of brain| Service Date: 3Chest CT Diagnostic w/o con| Service Date: 2CXR - Chest X-ray| Service Date: 08/10/2021X-ray of cervical spine| Service Date: 08/10/2021creening mammogram of bilateral breasts| Service Date: 03/16/2021T of chest without contrast| Service Date: 02/24/2021have biopsy and cauterization of skin| Service Date: 03/11/2020Colonoscopy| Service Date: 03/03/2020CT of chest| Service Date: 02/28/2020X-ray of fingers| Service Date: 01/30/2020Angiogram chest CTA| Service Date: 03/23/2019Mammogram| Service Date: 06/04/2018X-ray of cervical spine| Service Date: 07/21/2017 Medications cholecalciferol(Vitamin D3), 50 mcg, PO, Daily dilTIAZem(dilTIAZem 30 mg oral tablet), 30 mg= 1 tab, PO, bid, 3 refills loratadine, 5 mg, PO, Daily, PRN venlafaxine(venlafaxine 25 mg oral tablet), 0.5 tab, PO, Daily Allergies azithromycinNausea, Generalized aches and pains Social History Smoking Status Never smoked cigarettes Alcohol - No Risk Employment/School Status:Employed Home/Environment Lives with:Spouse Substance Abuse - No Risk Tobacco - No Risk Family History Asthma: Brother. Cancer: Father. Hypertension: Mother and Brother. Hypothyroidism: Mother. Prostate carcinoma: Father. Health Status Family Member(s) Immunizations Vaccine Date Status tetanus/diphtheria/pertuss, acel (Tdap) 05/11/2015 Recorded Comments : 2020-03-10: Historical information-source unspecified Recommendations Health Maintenance Pending(in the next year) OverDue Adult Influenza Vaccine due01/20/23and every 1year Due Adult COVID-19 Vaccination due11/30/23Unknown Frequency Adult Social Determinants of Health Screening due11/30/23Unknown Frequency Shingles Vaccine due11/30/23One-time only Due In Future Cervical Cancer Screening not due until07/28/24and every 5year Satisfied(in the past 1 year) Satisfied Body Mass Index on11/30/23.Satisfied by ANGEL LUIS Mckenna Kennie L Hepatitis C Screening on12/21/22.Satisfied by Contributor_system, [email or web address] Lipid Screening on12/21/22.Satisfied by Contributor_system, [email or web address] Electronic Signature on File Electronically Reviewed/Signed by: Mita Hassan Author Signature Dt/Tm:11/30/2023 01:58 PM Electronically Reviewed/Signed by: Clinton Frey MD Cosigner Signature Dt/Tm: 11/30/2023 04:54 PM [facility] [employer] Dra[employer] Department of Orthopaedics and Rehabilitation [facility] [address], [place] [address] OA Patient Care team information Care Team Personnel Name: ROSEANNE Bustos Tara Position: Nurse Pract - Family Med Member Role: Primary Care Provider Address: Address: [address] [place] [address], [place] [address] [place] Name: ROSEANNE Bryan Terra L Position: Nurse Pract - Vascular Surg Member Role: Lifetime Relationship Address: Address: [address] [place] [address] [place] Care Team Related Persons Name: LEYDA SPICER Address: home [address] [place], [place] [phone] Name: LEYDA SPICER Address: [address] [phone] Name: SARA SPICER Address: [facility] Address: home [address] [place] [phone]"
--- OUTSIDE RECORDS SUMMARY | 2023-12-09 17:43 | External Medical Summary | Continuity of Care Document ---
Author Name Unknown Organization [address] [id number] Care Team Providers Care Technical Advisor Name Role Phone Juana Bustos Primary Care Physician [phone] [id number] Date(s): 12/01/23 - 12/01/[address] [address] [phone] Encounter Diagnosis Pre-op exam(Discharge Diagnosis) - 12/01/23 Fracture of left clavicle(Discharge Diagnosis) - 12/01/23 Family history of factor V deficiency(Discharge Diagnosis) - 12/01/23 Discharge Disposition: Home or Self Care Attending Physician: ROSEANNE Bustos Tara Allergies, Adverse Reactions, Alerts Substance Reaction Severity Status azithromycin Nausea Generalized aches and pains Active Assessment and Plan Extracted from: Title:Preop Author:ROSEANNE Bustos Tara Date:05/16 1.Pre-op exam 2.Fracture of left clavicle 3.Family history of factor V deficiency Pt to have fractured clavicle repaired on 12/08/23. She is a non smoker, non drinker , no illicit drugs. No risk for sleep apnea. She has brought to my attention that her father has hx of factor V mutation. Will order testing as she may need to be on anticoag post op to prevent VTE if she is not up and moving as well. I have sent message for nursing to auth this test so we can hopefully get it done prior to her surgery on 12/08/23. Will also check cbc and cmp. She had cardiac testing within the last year that was normal. Cardiology did not feel she needed any further testing prior to surgery. Estimated Risk of Adverse Outcome with Non-cardiac Surgery Very Low Risk Estimated Rate of Myocardial Infarction, Pulmonary Edema, Ventricular Fibrillation, Cardiac Arrest, or Complete Heart Block 0.4 % Will addend this note once factor V testing is done and if further recommendations are warranted. time spent reviewing chart, face to face visit, ordersand documentation: 32 min Immunizations Given and Recorded Vaccine Date Status Refusal Reason tetanus/diphtheria/pertuss, acel (Tdap) 1 05/11/15 Recorded 1Result Comment: 2020-03-10: Historical information-source unspecified Medications dilTIAZem 30 mg oral tablet Start: 06/13/23 16:01:00 EST, 1 tab, PO, bid, Disp# 180 tab, Refills: 3, Pharmacy: [facility] Start Date: 06/13/23 Status: Ordered loratadine Start: 04/04/23 14:56:00 EDT, 5 mg =, PO, Daily, PRN: as needed for allergy symptoms Start Date: 04/04/23 Status: Ordered venlafaxine 25 mg oral tablet Start: 11/14/23 7:55:00 EDT, 0.5 tab, PO, Daily, Disp# 45 tab, Refills: 1, Pharmacy: [facility] Start Date: 11/14/23 Status: Ordered Vitamin B12 50 mcg oral tablet Start: 12/01/23 15:56:00 EDT, 1 tab, PO, Daily Start Date: 12/01/23 Status: Ordered Vitamin D3 Start: 11/29/22 14:41:00 EDT, 50 mcg =, PO, Daily Start Date: 11/29/22 Status: Ordered Mental Status 12/01/23 Barriers to Learning one year None evide nt Mandatory Health Literacy Documentation Yes Health Literacy Communication Barriers N ever Primary Language Turkmen Problem List Condition Confirmation Course Effective Dates [...] Diagnosis Diagnosis Type Effective Dates Health Status Clinical Service Informant Pre-op exam Discharge Diagnosis 12/01/23 Fracture of left clavicle Discharge Diagnosis 12/01/23 Family history of factor V deficiency Discharge Diagnosis 12/01/23 Procedures Procedure Date Related Diagnosis Body Site Status Diagnostic mammogram 1 01/26/23 Co mpleted MRI of brain 2 1/26/[address] Diagnostic w/o con 3 [...] oldest [Reference Range]: 1 Height 171 cm (12/01/23 3:57 PM) Patient Weight 68.8 kg (12/01/23 3:57 PM) Body Mass Index 23.53 kg/m2 (12/01/23 3:57 PM) Heart Rate 88 bpm (12/01/23 3:57 PM) Respiratory Rate 18 br/min (12/01/23 3:57 PM) Blood Pressure 142/82mmHg (12/01/23 3:57 PM) Cuff Pulse Pressure 60 mmHg (12/01/23 3:57 PM) Social History Social History Type Response Smoking Status Never smoked cigaret tri Sex Female FCM Outpt Note * ROSEANNE Bustos Tara: PERFORM Event Display: FCM Outpt Note Authored Date: [id number] Chief Complaint scheduled for surgery 12/07 for collarbone. Discuss factor V History of Present Illness Left clavicle repair. No Claudication No Chest pain No SOB 2 flights of steps No Personal hx of anesthesia complications No Family hx of anesthesia complications NoPersonal of hx of VTE, bleeding disorder YesFather has factor V No family hx of bleeding disorder No Family hx of sudden cardiac 1. Do you snore loudly (louder than talking or loud enough to be heard through closed doors)? no 2. Do you often feel tired, fatigued or sleepy during daytime hours? no 3. Has anyone observed you stopping breathing during your sleep? no 4. Do you have or are you being treated for high blood pressure? no 5. BMI more than 35kg/m2? no 6. Is your age over 50 years old? yes 7. Is your neck circumference greater than 17 if you are a male or 16 if you are a female? yes 8. Are you a male?no - High risk of CONNOR yes to three or more items Low risk of CONNOR yes to less than three items Review of Systems Constitutional: No fever, chills, sweats Pulmonary: No shortness of breath, dyspnea with exertion, cough, hemoptysis, wheezing, chest pain. Cardiovascular: No chest pain, palpitations, syncope, edema, cyanosis, claudication, orthopnea. GI: No nausea, vomiting, diarrhea, melena, hematochezia, change in appetite, abdominal pain, changein bowel habits or stools : No dysuria, frequency, urgency, urinary incontinence, hematuria, nocturia. Musculoskeletal: Pain in left upper shoulder Neurologic: No headache, lightheadedness, dizziness, Psychiatric: No depression, anxiety Dermatologic: No rash, new/growing/changing skin lesions Endocrine: No weight change, heat or cold intolerance, tremor, insomnia, polyuria, polydipsia, polyphagia, abnormal hair growth, change in nails Physical Exam Vitals & Measurements HR:88(Monitored) RR:18 BP:142/82 SpO2:98% HT:171cm WT:68.800kg(Dosing) WT:68.8kg BMI:23.53 PHQ2 Data(Data Documented on:12/01/2023 15:57) Emotional health assessment NEGATIVE head- normocephalic neck-no lymphadenopathy, masses, or thyromegaly, +carotid pulses, no bruits, trachea midline Pulmonary- chest expansion symmetric, CTA (clear to auscultation), eupnea, no adventitious sounds (rales, crackles, wheezes) CV (cardiovascular)- RRR no m/r/g (systolic ejection murmur, rubs, gallops), good peripheral perfusion extremitiesleft arm in sling skin-bruising in upper left chest. nails- no clubbing or deformities w good cap refill Neuro:Alert, Oriented Psy:no homicidal or suicidal ideations. Assessment/Plan 1.Pre-op exam 2.Fracture of left clavicle 3.Family history of factor V deficiency Pt to have fractured clavicle repaired on 12/08/23. She is a non smoker, non drinker , no illicit drugs. No risk for sleep apnea. She has brought to my attention that her father has hx of factor V mutation. Will order testing as she may need to be on anticoag post op to prevent VTE if she is not up and moving as well. I have sent message for nursing to auth this test so we can hopefully get it done prior to her surgery on 12/08/23. Will also check cbc and cmp. She had cardiac testing within the last year that was normal. Cardiology did not feel she needed any further testing prior to surgery. Estimated Risk of Adverse Outcome with Non-cardiac Surgery Very Low Risk Estimated Rate of Myocardial Infarction, Pulmonary Edema, Ventricular Fibrillation, Cardiac Arrest,or Complete Heart Block 0.4 % Will addend this note once factor V testing is done and if further recommendations are warranted. time spent reviewing chart, face to face visit, ordersand documentation: 32 min Problem List/Past Medical History Ongoing Ataxia Cervicalgia Chronic GERD Disturbance of skin sensation Fall Family history of factor V deficiency Fatigue Fracture of left clavicle Neuritis Nodule [...] 08/10/2021creening mammogram of bilateral breasts| Service Date: 1CT of chest without contrast| Service Date: 1Shave biopsy and cauterization of skin| Service Date: 03/11/2020Colonoscopy| Service Date: 03/03/2020CT of chest| Service Date: 02/28/2020X-ray of fingers| Service Date: 01/30/2020Angiogram chest CTA| Service Date: 03/23/2019Mammogram| Service Date: 06/04/2018X-ray of cervical spine| Service Date: 07/21/2017 Medications cholecalciferol(Vitamin D3), 50 mcg, PO, Daily cyanocobalamin(Vitamin B12 50 mcg oral tablet), 50 mcg= 1 tab, PO, Daily dilTIAZem(dilTIAZem 30 mg oral tablet), [...] due01/20/23and every 1year Due Adult COVID-19 Vaccination due12/01/23Unknown Frequency Adult Social Determinants of Health Screening due12/01/23Unknown Frequency Shingles Vaccine due12/01/23One-time only Due In Future Cervical Cancer Screening not due until07/28/24and every 5year Satisfied(in the past 1 year) Satisfied Body Mass Index on12/01/23.Satisfied by ANGEL LUIS Fisher Bobbi Hepatitis C Screening on12/21/22.Satisfied by Contributor_system, [email or web address] Lipid Screening on12/21/22.Satisfied by Contributor_system, [email or web address] Electronic Signature on File CC: Clinton Frey MD [address] [facility] [address] [facility] [address] Electronically Reviewed/Signed by: ROSEANNE Nixon Author Signature Dt/Tm:12/01/2023 04:46 PM Department of Family Medicine TB Patient Care team information Care Team Personnel Name: ROSEANNE Bustos Tara Position: Nurse Pract - Family Med Member Role: Primary Care Provider Address: Address: [address] [place] [address], [place] [address] [place] Name: ROSEANNE Bryan Terra L Position: Nurse Pract - Vascular Surg Member Role: Lifetime Relationship Address: Address: [address] [facility] [place], [place] [address] Care Team Related Persons Name: LEYDA SPICER Address: home [address] [place] [phone] Name: LEYDA SPICER Address: home [address] [place] [phone] Name: SARA SPICER Address: [place] Address: home [address] [place] [phone]"
--- OUTSIDE RECORDS SUMMARY | 2023-12-09 17:43 | External Medical Summary | Continuity of Care Document ---
Author Name Unknown Organization [facility] [address] [place] [id number] Care Team Providers Care Data Processing Clerk Name Role Phone Juana Bustos Primary Care Physician [phone] [id number] Date(s): 12/04/23 - 12/04/23 [facility] [address] [facility] [address] [facility] [address] [place], [place] [phone] Encounter Diagnosis Encounter for other preprocedural examination(Final) - Family history of diseases of the blood and blood-forming organs and certain disorders involving the immune mechanism(Final) - Discharge Disposition: Home or Self Care Attending Physician: ROSEANNE Bustos Tara Referring Physician: ROSEANNE Bustos Tara Allergies, Adverse Reactions, Alerts Substance Criticality Severity Reaction Reaction Severity Status azithromycin Nausea Generalized aches and pains Active Immunizations Given and Recorded Vaccine Date Status Refusal Reason tetanus/diphtheria/pertuss, acel (Tdap) 1 05/11/15 Recorded 1Result Comment: 2020-03-10: Historical information-source unspecified Medications dilTIAZem 30 mg oral tablet Start: 06/13/23 4:01:00 PM EST, 1 tab, PO, bid, Disp# 180 tab, Refills: 3, Pharmacy: [facility] Start Date: 06/13/23 Status: Ordered loratadine Start: 04/04/23 2:56:00 PM EDT, 5 mg =, PO, Daily, PRN: as needed for allergy symptoms Start Date: 04/04/23 Status: Ordered oxyCODONE 5 mg oral tablet Start: 12/06/23 2:47:00 PM EDT, 1 tab, PO, q4h, Disp# 18 tab, Refills: 0, Note to Pharmacy: initial therapy, PRN: as needed for pain, Pharmacy: [facility] Start Date: 12/06/23 Status: Ordered venlafaxine 25 mg oral tablet Start: 11/14/23 7:55:00 AM EDT, 0.5 tab, PO, Daily, Disp# 45 tab, Refills: 1, Pharmacy: [facility] Start Date: 11/14/23 Status: Ordered Vitamin B12 50 mcg oral tablet Start: 12/01/23 3:56:00 PM EDT, 1 tab, PO, Daily Start Date: 12/01/23 Status: Ordered Vitamin D3 Start: 11/29/22 2:41:00 PM EDT, 50 mcg =, PO, Daily Start Date: 11/29/22 Status: Ordered Problem List Condition Confirmation Course Effective Dates Status Health St atus Informant Fall Confirmed 07/2021 Active Ataxia Confirmed Active Family history of factor V deficiency Confirmed Active Fatigue Confirmed Active Fracture of left clavicle Confirmed Active Chronic GERD Confirmed Active Neuritis Confirmed Active Nodule of right lung Confirmed Active Cervicalgia Confirmed Active Disturbance of skin sensation Confirmed Active Procedures Procedure Date Related Diagnosis Body Site [...] C5-6 and C6-7. No acute osseous injury Results Laboratory List Name Date Complete Blood Count w Differential (CBC ,DIFFH) 12/04/23 Comprehensive Metabolic Panel (COMP META B PANEL) 12/04/23 Factor V.Leiden (FACTOR V LEIDEN) 4 Most recent to oldest [Reference Range]: 1 eGFR CKD-EPI [>60 mL/min/1.73 m2] 80 mL/ min/1.73 m2 1 (12/04/23 2:42 PM) Estimated CrCl 70.97 mL/min (12/04/23 3:11 PM) Factor V Leiden POSITIVE (heterozygo us) *Unknown* (12/04/23 2:42 PM) MPV [9.0-12.2 fL] 9.4 fL (12/04/23 2:42 PM) Immature Gran% 0.4 % (12/04/23 2:42 PM) Neut% 59.0 % (12/04/23 2:42 PM) Lymph% 28.8 % (12/04/23 2:42 PM) [place]% 9.0 % (12/04/23 2:42 PM) Baso% 0.9 % (12/04/23 2:42 PM) Eos% 1.9 % (12/04/23 2:42 PM) Immat Gran, Abs [0-0.4 K/uL] 0.03 K/uL (12/04/23 2:42 PM) Neut, Abs [2.0-7.7 K/uL] 4.01 K/uL (12/04/23 2:42 PM) Lymph, Abs [1.0-3.4 K/uL] 1.96 K/uL (12/04/23 2:42 PM) [place], Abs [0-1.0 K/uL] 0.61 K/uL (12/04/23 2:42 PM) Baso, Abs [0-0.1 K/uL] 0.06 K/uL (12/04/23 2:42 PM) Eos, Abs [0-0.5 K/uL] 0.13 K/uL (12/04/23 2:42 PM) Type of Diff: AUTO *Unknown* (12/04/23 2:42 PM) RDW [11.5-14.2 %] 12.4 % (12/04/23 2:42 PM) Anion Gap [5-14 mmol/L] 9 mmol/L (12/04/23 2:42 PM) Alb [3.5-5.0 g/dL] 4.2 g/dL (12/04/23 2:42 PM) Alk Phos [38-126 unit/L] 65 unit/L (12/04/23 2:42 PM) ALT [<35 unit/L] 25 unit/L (12/04/23 2:42 PM) AST [15-46 unit/L] 21 unit/L (12/04/23 2:42 PM) BUN [7-20 mg/dL] 17 mg/dL (12/04/23 2:42 PM) Ca [8.4-10.2 mg/dL] 9.5 mg/dL (12/04/23 2:42 PM) Cl- [96-107 mmol/L] 106 mmol/L (12/04/23 2:42 PM) HCO3 [22-30 mmol/L] 26 mmol/L (12/04/23 2:42 PM) Cret [0.60-1.00 mg/dL] 0.84 mg/dL (12/04/23 2:42 PM) Glu [74-106 mg/dL] 127 mg/dL *HI* (12/04/23 2:42 PM) Hct [35-44 %] 39.2 % (12/04/23 2:42 PM) Hgb [11.7-15.0 g/dL] 13.5 g/dL (12/04/23 2:42 PM) K [3.5-5.1 mmol/L] 3.9 mmol/L (12/04/23 2:42 PM) MCH [28-33 pg] 31.5 pg (12/04/23 2:42 PM) MCHC [32-36 g/dL] 34.4 g/dL (12/04/23 2:42 PM) MCV [81-96 fL] 91.6 fL (12/04/23 2:42 PM) Na [137-145 mmol/L] 141 mmol/L (12/04/23 2:42 PM) Plts [150-350 K/uL] 385 K/uL *HI* (12/04/23 2:42 PM) RBC [3.90-5.00 M/uL] 4.28 M/uL (12/04/23 2:42 PM) T Bili [0.2-1.3 mg/dL] 0.7 mg/dL (12/04/23 2:42 PM) Prot [6.3-8.2 g/dL] 7.7 g/dL (12/04/23 2:42 PM) WBC [4.0-10.4 K/uL] 6.80 K/uL (12/04/23 2:42 PM) 1Result Comment: Testing Performed By: Dept of Pathology [facility] Lopez, [address] [facility] [place] [address] Social History Social History Type Response Smoking Status Never smoked cigaret tri Sex Female Patient Care team information Care Team Personnel Name: ROSEANNE Bustos Tara Position: Nurse Pract - Family Med Member Role: Primary Care Provider Address: Address: [address] [place] [address] [place] Name: ROSEANNE Bryan Terra L Position: Nurse Pract - Vascular Surg Member Role: Lifetime Relationship Address: Address: [address] [place] [address] [place] Care Team Related Persons Name: LEYDA SPICER Address: home [address] [facility] [facility] [place] [phone] Name: LEYDA SPICER Address: home [address] [facility] [place] [phone] Name: SARA SPICER Address: [facility] Address: home [address] [facility] [place] [phone]
--- OUTSIDE RECORDS SUMMARY | 2023-12-09 17:44 | External Medical Summary | Summary of Care ---
Author Name Unknown Organization [facility] Address [address] [place] [address] Phone [phone] Care Team Providers Care Boilermaker Welder Name Role Phone AlbertoBrie shirleymao CRONIN Primary Care Provider [phone] Reason for Visit * Reason Onset Date Comments Films 11/28/2023 Encounter Details Date Type Department Care Team (Late st Contact Info) Description 11/28/2023 Telephone Radiology Film File [address] [place] [address] Tara Abdi MD [address] [place] [id number] Films Allergies Active Allergy Reactions Criticality Noted Date Comments Azithromycin 12/15/2010 Aches, Nausea documented as of this encounter (statuses as of 11/28/2023) Medications Medication Sig Dispensed Refills Start Date End Date Status PRILOSEC 20 MG PO CPDR one tablet as needed 0 Active KETOCONAZOLE 200 MG PO TABSIndications:Tinea versicolor take two pills once a week for two months 8 Tab 1 12/10/2012 Active SELENIUM SULFIDE 2.5 % EX LOTNIndications:Tinea versicolor apply from neck to waist to wrists for thirty minutes, then wash off. Do this 5 days in a row, then 2 days in a row each month 1 Bottle 11 12/24/2012 Active dilTIAZem HCl 30 MG Oral Tablet (Cardizem) Take 1 Tablet by mouth 4 times a day before meals and at bedtime. 0 Active venlafaxine 12.5 MG OR TABS Take by mouth 3 times a day. 0 Active documented as of this encounter (statuses as of 11/28/2023) Active Problems Problem Noted Date Diagnosed Date Tinea versicolor 12/24/2012 documented as of this encounter (statuses as of 11/28/2023) Social History Tobacco Use Types Packs/Day Years Used Date Smoking Tobacco: Never Smokeless Tobacco: Never Alcohol Use Standard Drinks/Week Comments No 0 (1 standard drink = 0.6 oz pur e alcohol) Sex and Gender Information Value Date Recorded Sex Assigned at Not on file Gender Identity Not on file Sexual Orientation Not on file Job Start Date Occupation Industry Not on file Not on file Not on file documented as of this encounter Miscellaneous Notes * Telephone Encounter - Constance Portillo OSA - 11/28/2023 1:46 PM EDT [facility] Sports Medicine requesting 11-27-23 CT and xray shoulder imaging and report(s). [facility] Authorization to Release on file. Images pushed to [facility] PACS as this is the office's preferred method of transmission/retrieval. Associated report(s) not needed. documented in this encounter Plan of Treatment Upcoming Encounters Date Type Department Care Team (Late st Contact Info) Description 11/29/2023 9:00 AM EDT Office Visit Orthopaedics [facility] [address] [place] [address] Dipak Whitney MD [address] [place] [phone] Health Maintenance Due Date Last Done Comments Lipid Panel 1964 Depression Screening 1976 HIV Screening 01/28/1979 Hepatitis C Screening 01/28/1982 Hepatitis B (1 of 3 - 19+ 3- dose series) 01/28/1983 HPV/Co-Test 01/28/1994 Mammogram 2004 Cologuard 01/28/2009 Colonoscopy 01/28/2009 Colorectal Cancer Screening 01/28/2009 Fecal Occult Blood Test 01/28/2009 Sigmoidoscopy 01/28/2009 Zoster Vaccines (1 of 2) 01/28/2014 Cervical Cancer Screening 10/25/2014 Pap Smear 10/25/2014 10/26/2011 COVID-19 Vaccine (1 - 2022-2 4 season) 2023 Influenza Vaccine (FLU shot) (Season Ended) 2024 DTaP,Tdap,and Td Vaccines (2 - Td or Tdap) 05/11/2025 05/11/2015 GARDASIL-HPV IMMUNIZATION SERIES Aged Out No longer eligible based on patient's age to complete this topic MENINGOCOCCAL (MENACTRA/MENVEO) Aged Out No longer eligible based on patient's age to complete this topic Pneumococcal Vaccine: Pediat rics (0 to 5 Years) and At-Risk Patients (6 to 64 Years) Aged Out No longer eligi ble based on patient's age to complete this topic documented as of this encounter Medical Devices Not on filedocumented as of this encounter Care Teams Boilermaker Welder Relationship Specialty Start Date End Date Sharona Kaminski CRNP [address] [facility] [place] [address] PCP - General Nurse Practitioner 01/28/20 documented as of this encounter
--- OUTSIDE RECORDS SUMMARY | 2023-12-09 17:44 | External Medical Summary ---
Author Name Unknown Address Unknown Organization K1F:[facility] - [facility] [address] [place] [address] Laboratory Report Ordering Provider Test Date Status BETTE CARDENAS 11/27/2023 20:35:46 Final Observation Date Value Abnormality Reference (Units ) Status ABO 11/27/2023 20:35:46 B Final RH 11/27/2023 20:35:46 Negative Final RED BLOOD CELL ANTIBODY SCREEN 11/27/2023 20:35:46 Negative Final SPECIMEN EXPIRATION DATE 11/27/2023 20:35:46 11/30/2023 23:59 Final Performing Location [facility] - [address] [place] [address]
--- OUTSIDE RECORDS SUMMARY | 2023-12-09 17:44 | External Medical Summary ---
Author Name Unknown Address Unknown Organization K1F:[facility] - [address] [place] [address] Ave. [place] [address] Laboratory Report Ordering Provider Test Date Status BETTE CARDENAS 11/27/2023 20:35:46 Final Observation Date Value Abnormality Reference (Units ) Status WBC, Total 11/27/2023 20:35:46 6.80 4.00-10.80 (K/uL) Final RBC 11/27/2023 20:35:46 4.08 3.85-5.15 (M/uL) Final Hemoglobin 11/27/2023 20:35:46 13.2 12.0-15.3 (g/dL) Final HCT 11/27/2023 20:35:46 37.6 36.0-45.2 (%) Final MCV 11/27/2023 20:35:46 92.2 81.5-97.5 (fL) Final MCH 11/27/2023 20:35:46 32.4 27.0-34.0 (pg) Final MCHC 11/27/2023 20:35:46 35.1 32.0-36.0 (g/dL) Final RDW 11/27/2023 20:35:46 12.4 11.5-15.5 (%) Final Platelets 11/27/2023 20:35:46 261 140-400 (K/uL) Final MPV 11/27/2023 20:35:46 9.6 6.6-11.1 (fL) Final Nucleated erythrocytes/100 leukocytes [Ratio] in Blood by Automated count 11/27/2023 20:35:46 0 <=0 (/100 WBCs) Final Performing Location [facility] - [address] [place] [address]
--- OUTSIDE RECORDS SUMMARY | 2023-12-09 17:44 | External Medical Summary ---
Author Name Unknown Address Unknown Organization K1F:[facility] [address] [place] [address] Laboratory Report Ordering Provider Test Date Status BETTE CARDENAS 11/27/2023 20:35:46 Final Observation Date Value Abnormality Reference (Units ) Status BUN 11/27/2023 20:35:46 12 6-20 (mg/dL) Final Creatinine 11/27/2023 20:35:46 1.0 0.5-1.0 (mg/dL) Final Glomerular filtration rate/1.73 sq M.predicted [Volume Rate/Area] in Serum, Plasma or Blood by Creatinine-based formula (CKD-EPI) 11/27/2023 20:35:46 66 >=60 (mL/min) Final eGFR is calculated based on the CKD-EPI 2020 equation Sodium 11/27/2023 20:35:46 138 135-146 (m mol/L) Final Potassium 11/27/2023 20:35:46 3.5 3.5-5.1 (m mol/L) Final Cl 11/27/2023 20:35:46 106 98-107 (mm ol/L) Final CO2 11/27/2023 20:35:46 21 Below low normal 22- 32 (mmol/L) Final Anion gap 11/27/2023 20:35:46 11 7-15 (mmol /L) Final Glucose 11/27/2023 20:35:46 147 Above high normal 70 -120 (mg/dL) Final Albumin 11/27/2023 20:35:46 4.0 3.8-5.0 (g /dL) Final AST (Aspartate aminotransferase) 11/27/2023 20:35:46 32 10-35 (U/L) Fin al Result may be falsely elevat ed due to hemolysis. Alk Phos 11/27/2023 20:35:46 74 35-130 (U/ L) Final Bilirubin, Total 11/27/2023 20:35:46 0.3 <=1 .2 (mg/dL) Final Calcium 11/27/2023 20:35:46 9.2 8.4-10.2 ( mg/dL) Final Protein 11/27/2023 20:35:46 7.0 6.0-8.3 (g /dL) Final ALT (Alanine aminotransferase) 11/27/2023 20:35:46 25 10-35 (U/L) Final Performing Location [facility] - [facility] [address] [place] [address]
--- OUTSIDE RECORDS SUMMARY | 2023-12-09 17:44 | External Medical Summary ---
Author Name Unknown Address Unknown Organization [id number]:[facility] [address] [place] [id number] Laboratory Report Ordering Provider Test Date Status THERESAAMOS 11/27/2023 20:35:46 Final Observation Date Value Abnormality Reference (Units ) Status SYNC LEUKOCYTES IN BLOOD BY AUTOMATED COUNT 11/27/2023 20:35:46 6.80 4.00-10.80 (K/uL) Final Segs 11/27/2023 20:35:46 46.4 40.0-75.0 (%) Final Lymphs % 11/27/2023 20:35:46 42.6 Above high normal 18.0-42.0 (%) Final Monos 11/27/2023 20:35:46 7.2 1.0-11.0 (%) Final Eosinophils 11/27/2023 20:35:46 2.4 0.0-6.0 (%) Final Basos 11/27/2023 20:35:46 0.7 0.0-2.0 (%) Final Immature Granulocyte, Percent 11/27/2023 20:35:46 0.7 0.0-2.0 (%) Final Absolute Segs 11/27/2023 20:35:46 3.15 1.80-7.70 (K/uL) Final Lymphs, absolute 11/27/2023 20:35:46 2.90 1.00-4.80 (K/ul) Final Monos, Abs 11/27/2023 20:35:46 0.49 0.00-1.10 (K/uL) Final Eos, Abs 11/27/2023 20:35:46 0.16 0.00-0.70 (K/uL) Final Basos, Abs 11/27/2023 20:35:46 0.05 0.00-0.20 (K/uL) Final Immature Granulocytes, Number 11/27/2023 20:35:46 0.05 0.00-0.20 (K/uL) Final Performing Location [facility] [address] [place] [id number]
--- OUTSIDE RECORDS SUMMARY | 2023-12-09 17:44 | External Medical Summary | Summary of Care ---
Author Name Unknown Organization [facility] Address [address] [place] [address] Phone [phone] Care Team Providers Care Tube Turner Name Role Phone Sharona Kaminski Primary Care Provider + [phone] Reason for Referral * Evaluate & Treat - Unlimited Visits (Within 3 days (urgent)) - Pending Review Specialty Diagnoses / Procedures Referred By Sb chiang Referred To Contact Orthopaedic Surgery / Orthopedics Diagnoses Closed displaced fracture of shaft of left clavicle, initial encounter Tara Abdi MD [address] [place] [address] Referral ID Status Reason Start Date Expiration Date Visits Requested Visits Authorized [id number] Pending Review Specialty Services Required 11/27/2023 999 999 Question Answer Referral Priority Within 3 days (urgent) Where should this appointment be scheduled? External - [facility] Ortho--Dr Bueno What body part is the patient being seen for? Shoulder What condition is the patient being seen for? Fracture including related infection Comments Discharge Order Reason for Visit * Reason Comments Fall * Auth/Cert Specialty Diagnoses / Procedures Referred By Sb chiang Referred To Contact [facility] [address] [place] [address] Phone: [phone] Emergency Medicine [facility] [address] [place] [address] Referral ID Status Reason Start Date Expiration Date Visits Re quested Visits Authorized [id number] Encounter Details Date Type Department Care Team (Late st Contact Info) Description 11/27/2023 7:42 PM EDT - 11/27/2023 10:13 PM EDT Emergency [facility] (H) [address] [place] [address] Tara Abdi MD [address] [place] [address] Fall into hole as cause of accidental injury (Primary Dx); Closed displaced fracture of shaft of left clavicle, initial encounter; Contusion of multiple sites Discharge Disposition: Home - Self Care Allergies Active Allergy Reactions Criticality Noted Date [...] on file documented as of this encounter Last Filed Vital Signs Vital Sign Reading Time Taken Comments Blood Pressure 117/75 11/27/2023 9:30 PM EDT Pulse 93 11/27/2023 9:54 PM EDT Temperature 36.7 C (98.1 F) 11/27/2023 7:46 PM ED T Respiratory Rate 15 11/27/2023 9:54 PM EDT Oxygen Saturation 98% 11/27/2023 9:54 PM EDT Inhaled Oxygen Concentration - - Weight 68.5 kg (151 lb) 11/27/2023 7:46 PM EDT Height 167.6 cm (5' 6") 11/27/2023 7:46 PM EDT Body Mass Index 24.37 11/27/2023 7:46 PM EDT documented in this encounter ED Notes * Tara Abdi MD - 11/27/2023 8:24 PM EDT Images from the original note were not included. HISTORY OF PRESENT ILLNESS Candice Bhandari is a 58 year old female who presents to the ED for evaluation of Fall. The patient was seen at 11/27/231949. The patient says she went outside to check her garden, and while stepping around her left ankle rolled and she fell into a 5 ft hole. Apparently there is construction ongoingat her home. The patient has severe pain left shoulder. She has a history of left shoulder fracture. Her left hand is tingling. She has some discomfort left hip and bilateral thighs. Some left lateral neck pain. No chest pain or trouble breathing. Nausea. No abdominal pain. She does have a history of left thoracic outlet syndrome. HPI: Candice Bhandari is a 58 year old female who presents for evaluation as a LEVEL 1 TRAUMA ALERT The mechanism of injury was a fall The trauma occured just prior to arrival. The patient arrived by BLS PRE-ARRIVAL NOTIFICATION BY EMS: Yes Treatments prior to arrival include long spine board, the patient refused cervical collar, and A trauma alert was called. PRIMARY SURVEY Airway assessed, clear and unobstructed with no secretions or blood in airway Breathing assessed, equal chest rise with equal breath sounds bilaterally, no gross thoracic instability Circulation assessed, pulses present in all extremities, no actively bleeding wounds Disability/Neuro assessed, awake, alert, follows commands with all extremities Exposure patient fully exposed and clothing removed to allow assessment of injuries Is a cervical collar already in place as the patient arrived? No Did [facility] ED staff place a cervical collar on the patient on arrival? Yes XRAYS Portable 1 view chest xray was ordered? Yes Preliminary reading: Mid shaft left angulated clavicle fracture noted. No pneumothorax, no other fractures appreciated, no dislocation. No infiltrates. ED physician interpretation Portable 1 view pelvis xray was ordered? Yes Preliminary reading: No fracture, normal alignment. ED physician interpretation PROCEDURE: eFAST Ultrasound exam INDICATION: Trauma INTERPRETATON: Normal eFAST examination The area between the liver and right kidney was visualized and had NO hypoechoic collection The pericardial space was visualized and had NO hypoechoic collection The area between the spleen and left kidney was visualized and had NO hypoechoic collection The bladder was visualized and NO hypoechoic area was near the bladder. The right and left pleura was visualized and proper pleural sliding, NO hemothorax and/or pneumothorax seen Review of Systems HENT: Positive for congestion. Gastrointestinal: Positive for nausea. Negative for vomiting. Musculoskeletal: Positive for arthralgias, myalgias and neck pain. Negative for back pain. Neurological: Positive for numbness. Negative for dizziness, light-headedness and headaches. The patient's allergies, past history, and medications were reviewed. PHYSICAL EXAM Initial Vitals (see all): BP 131/81 | Pulse 91 | Resp 19 | Temp 98.1 | O2 100 %Weight 68.49 kg | Height 167.6 cm | BMI 24.37 kg/m2 Initial Pain Assessment (see all): 8 (severe pain)/10 ([facility] Adult Scale 0-10) Physical Exam Vitals and nursing note reviewed. Constitutional: General: She is in acute distress (Moderate. Limited range of motion left shoulder). HENT: Head: Normocephalic and atraumatic. Eyes: Extraocular Movements: Extraocular movements intact. Pupils: Pupils are equal, round, and reactive to light. Cardiovascular: Rate and Rhythm: Normal rate and regular rhythm. Pulses: Radial pulses are 2+ on the right side and 2+ on the left side. Dorsalis pedis pulses are 2+ on the right side and 2+ on the left side. Heart sounds: No murmur heard. No gallop. Pulmonary: Effort: Pulmonary effort is normal. No respiratory distress. Breath sounds: Normal breath sounds. Chest: Chest wall: Deformity, swelling and tenderness present. No crepitus. Abdominal: General: Bowel sounds are normal. There is no distension. Palpations: Abdomen is soft. Tenderness: There is no abdominal tenderness. There is no guarding or rebound. Musculoskeletal: General: No swelling, tenderness or deformity. Left shoulder: No swelling, deformity or tenderness. Decreased range of motion. Left upper arm: No swelling, deformity or tenderness. Left elbow: No swelling or deformity. Normal range of motion. No tenderness. Left forearm: No swelling, deformity or tenderness. Left wrist: No swelling, deformity or tenderness. Normal range of motion. Left hand: No swelling, deformity or tenderness. Normal range of motion. Cervical back: Normal range of motion and neck supple. No swelling, deformity, spasms or tenderness. No muscular tenderness. Normal range of motion. Thoracic back: No swelling, deformity, spasms or tenderness. Normal range of motion. Lumbar back: No swelling, deformity, spasms or tenderness. Normal range of motion. Right upper leg: Swelling (Mild anterior proximal) present. No deformity or tenderness. Left upper leg: Swelling (Mild anterior proximal) present. No deformity or tenderness. Right knee: Crepitus present. No swelling or deformity. Normal range of motion. No tenderness. Left knee: Crepitus present. No swelling or deformity. Normal range of motion. No tenderness. Right lower leg: Swelling (Mild right mid swain with some developing ecchymosis) present. No tenderness. No edema. Left lower leg: No swelling or tenderness. No edema. Comments: No tenderness or swelling right upper extremity, no tenderness bilateral lower extremities. Lymphadenopathy: Cervical: No cervical adenopathy. Skin: General: Skin is warm and dry. Coloration: Skin is not cyanotic. Findings: Ecchymosis (Right anterior mid swain as noted) present. No rash. Nails: There is no clubbing. Neurological: General: No focal deficit present. Mental Status: She is alert and oriented to person, place, and time. GCS: GCS eye subscore is 4. GCS verbal subscore is 5. GCS motor subscore is 6. Cranial Nerves: Cranial nerves 2-12 are intact. Motor: Motor function is intact. Psychiatric: Mood and Affect: Mood normal. Speech: Speech normal. Behavior: Behavior normal. Behavior is cooperative. PROCEDURES AND TREATMENTS ED Orders | ED Results MEDICAL DECISION MAKING Nursing notes and vital signs were reviewed. ED Course as of 11/27/23 2356 MonNovember 27, [id number] Reassessment: Patient has remained stable. ED nursing staff will apply shoulder immobilizer orsling whichever is more comfortable. Patient declining opiates at this time as she says they make her loopy. Was advised to try ice, ibuprofen, Tylenol. She has been followed by [facility] Dr. Bueno in [place]. Will put in referral [DH] ED Course User Index [DH] Tara Abdi MD Differential Diagnoses Based on my history, physical exam, and evaluation, the differential includes, but is not limited, to the following diagnoses: Clavicle fracture, rib fractures, contusion, head injury. Amount and/or Complexity of Data Reviewed Labs: ordered. Radiology: ordered. Risk Prescription drug management. Clinical Impressions Fall into hole as cause of accidental injury Closed displaced fracture of shaft of left clavicle, initial encounter Contusion of multiple sites Disposition Discharged. The patient's condition at disposition was: stable. Discharge Medications None Tara Abdi This chart was completed in part utilizing [employer] Speech Voice Recognition Software. Grammatical errors, random word insertions, prounoun errors, and incomplete sentences are an occasional consequence of this system due to software limitations, ambient noise, and hardware issues. Any formal questions or concerns about the content, text, or information contained within the body of this dictation should be directly addressed to the provider for clarification. Tara Abdi MD 11/27/2023 11:57 PM * Chelly Seay RN - 11/27/2023 7:44 PM EDT BLS Report: Pt was on her porch and he ankle rolled, states that she fell off the porch into a 5 foot hole. Pt states that she did hit the left side of her head. Denies LOC or use of blood thinners. + deformity to left clavicle. Refused c-collar for EMS. documented in this encounter Miscellaneous Notes * ED Hand Tacker Note - Zeynep Christine RN - 11/27/2023 10:07 PM EDT Patient was able to ambulate to the bathroom with out assistance. Patient had a steady gait. Patient states she feels okay except some pain in her shoulder. Patient was placed in a shoulder immobilizer for the L arm prior to walking. * Pt Handout (on AVS) - Tara Abdi MD - 11/27/2023 9:42 PM EDT [id number] Shoulder Immobilizer A shoulder immobilizer is designed to hold your arm against your body. It's used for injuries whereyou need to limit how much you can move your shoulder. These injuries include a shoulder dislocation or shoulder fracture where moving your shoulder too much could cause harm. You should use the immobilizer all the time or as advised by your healthcare provider. This will prevent other people from accidentally pulling on your arm. It also keeps you from sleeping in an incorrect position or moving the shoulder into a position that might make your injury worse. A joint that is immobilized too long can become stiff and lose range of motion. Follow-up with yourhealthcare provider as advised. Don?t use the shoulder immobilizer longer than you are told to. Askif you should move your elbow, wrist, and hand. Home use Leave the shoulder immobilizer in place as long as your healthcare provider tells you to. Unlessyour healthcare provider tells you otherwise, you should sleep with it in place. If you are being treated for a shoulder dislocation, you may take the immobilizer off to bathe or dress. But while it?s off, don?t try to raise your arm away from your body. Put the immobilizer back on as soon as possible. If you are being treated for a shoulder fracture, leave the immobilizer in place until your nextexam. The shoulder immobilizer can be adjusted. If it becomes loose, adjust it so that your arm is snug against your body. Your forearm should be level with the ground (horizontal). Your hand should be level with your elbow. Last Reviewed Date: 2022 [employer]. All rights reserved. This information is not intended as a substitute for professional medical care. Always follow your healthcare professional's instructions. * Pt Handout (on AVS) - Tara Abdi MD - 11/27/2023 9:42 PM EDT [id number] Soft Tissue Bruise (Contusion) You have a bruise (contusion). There is swelling and some bleeding under the skin. This injury generally takes a few days to a few weeks to heal. During that time, the bruise will typically change incolor from reddish, to purplish-blue, to greenish-yellow, then to yellowish-brown. Home care Elevate the injured area to reduce pain and swelling. As much as possible, sit or lie down with the injured area raised about the level of your heart. This is especially important during the first48 hours. Ice the injured area to help reduce pain and swelling. Wrap an ice pack in a thin towel. Apply to the bruised area for 20 minutes every 1 to 2 hours the first day. Continue this 3 to 4 times a dayuntil the pain and swelling goes away. You can make an ice pack by placing ice cubes in a plastic bag, or by using a frozen bag of vegetables. Unless another medicine was prescribed, you can take acetaminophen, ibuprofen, or naproxen to control pain. Talk with your healthcare provider before using these medicines if you have chronic liver or kidney disease or ever had a stomach ulcer or digestive bleeding. Follow-up care Follow up with your healthcare provider, or as advised. Call if you are not better in 1 to 2 weeks. When to seek medical advice Call your healthcare provider right away if any of the following occur: Increased pain or swelling Bruise is on an arm or leg, and arm or leg becomes cold, blue, numb, or tingly Signs of infection: Warmth, drainage, or increased redness or pain around the contusion Inability to move the injured area or body part Bruise is near your eye, and you have problems with your eyesight or eye Frequent bruising for unknown reasons Last Reviewed Date: 02/21/20224 [employer]. All rights reserved. This information is not intended as a substitute for professional medical care. Always follow your healthcare professional's instructions. * Pt Handout (on AVS) - Tara Abdi MD - 11/27/2023 9:41 PM EDT [id number] Collarbone Fracture You have a break (fracture) in your collarbone (clavicle). This will cause swelling, pain, and bruising. The first few weeks will be the most painful. This is because deep breathing, coughing, or changing position from sitting to lying down may cause the broken ends to move slightly. The fracture will heal in about 4 to 6 weeks. Most people can return to normal activities in about 3 months. In children, this injury will heal often by reshaping the bone back to normal. In adults, a noticeable bump in the bone may remain. Treatment is with a sling or a shoulder immobilizer. This supports your arm and eases pain. Most fractures can be treated this way. But more complicated breaks may need surgery. This is done by an orthopedic surgeon, who specializes in treating bone, muscle, joint, and tendon problems. Home care Follow these guidelines when caring for yourself or your child at home: Put an ice pack on the injured area. Do this for 20 minutes every 1 to 2 hours on the first day.To make an ice pack, put ice cubes in a plastic bag that seals at the top. Wrap the bag in a thin towel. Keep using the ice pack 3 to 4 times a day for the next 2 days. Then use it as needed to ease pain and swelling. If you were given a sling or shoulder immobilizer, wear it for comfort. You may take it off whenyou bathe or sleep. Take your arm out of the sling for a little while each day and move your shoulder, elbow, wrist, and hand to keep them from getting stiff. Don?t do any heavy lifting or raise the injured arm overhead until you're pain-free. Your child shouldn?t play sports or do physical education class for at least 4 weeks, or until the healthcare provider says it?s OK to do so. You may use acetaminophen or ibuprofen to control pain, unless another pain medicine was prescribed. If you have chronic liver or kidney disease, talk with your provider before using these medicines. Also talk with your provider if you?ve had a stomach ulcer or digestive tract bleeding. Your provider may refer you to physical therapy for shoulder exercises once it starts to heal. You may need surgery if the bones are out of place (displaced). Surgery will put them in better alignment while they heal. This leads to better strength when you have healed. Follow-up care Follow up with your healthcare provider as advised. This is to be sure the bone is healing the way it should. X-rays are occasionally taken of the fracture. You'll be told of any new findings that may affect your care. When to get medical care Call your healthcare provider right away if any of these occur: Swelling in your collarbone gets worse or the skin in the area becomes pale or discolored Large area of bruising over the collarbone Fingers become swollen, cold, blue, numb, or tingly Shortness of breath, dizziness, or general weakness Weakness or swelling in your arm Any redness, drainage, or pus coming from the wound Last Reviewed Date: 11/21/202119995482-4393 [employer]. All rights reserved. This information is not intended as a substitute for professional medical care. Always follow your healthcare professional's instructions. documented in this encounter Plan of Treatment Upcoming Encounters Date Type Department Care Team (Late st Contact Info) Description 11/29/2023 9:00 AM EDT Office Visit Orthopaedics [facility] [address] [place] [address] Dipak Whitney MD [address] [place] [phone] Scheduled Referrals Name Type Priority Associated Diagnoses Order Schedule ORTHOPAEDICS REFERRAL OP Referral Within 3 days (urgent) Closed displaced fracture of shaft of left clavicle, initial encounter Ordered: 11/27/2023 Health Maintenance Due Date Last Done Comments [...] 10/25/2014 Pap Smear 10/25/2014 10/26/2011 COVID-19 Vaccine ( - 2022-2 4 season) 2023 Influenza Vaccine [...] Not on filedocumented as of this encounter Procedures Procedure Name Priority Date/Time Associated Diagnosis Comments TOXICOLOGY, URINESCREEN W/ CONFIRMATION STAT 11/27/2023 10:07 PM EDT MICROSCOPIC EXAM, URINE STAT 11/27/2023 10:07 PM EDT URINALYSIS, REFLEX TO MICROSCOPIC STAT 11/27/2023 10:07 PM EDT DIFFERENTIAL, AUTOMATED STAT 11/27/2023 8:35 PM EDT COMPREHENSIVE METABOLIC PANEL STAT 11/27/2023 8:35 PM EDT TYPE AND SCREEN STAT 11/27/2023 8:35 PM EDT CBC STAT 11/27/2023 8:35 PM EDT PT INR STAT 11/27/2023 8:35 PM EDT ETHANOL, MEDICAL STAT 11/27/2023 8:35 PM EDT CBC STAT 11/27/2023 8:35 PM EDT EXTRA BILLS TOP Routine 11/27/2023 8:32 PM EDT EXTRA GREEN TOP WITH GEL Routine 11/27/2023 8:32 PM EDT EXTRA TUBES Routine 11/27/2023 8:32 PM EDT XR ANKLE 3 OR MORE VIEWS STAT 11/27/2023 8:29 PM EDT XR FEMUR MINIMUM 2 VIEWS STAT 11/27/2023 8:29 PM EDT XR SHOULDER, 2 OR MORE VIEWS STAT 11/27/2023 8:[address] ABD/PELVIS W IV CONTRAST - WO ORAL CONTRAST STAT 11/27/2023 8:[address] C SPINE WO CONTRAST STAT 8:[address] CHEST W CONTRAST STAT 11/27/2023 8 [address] HEAD/BRAIN WO CONTRAST STAT 11/27/2023 8:13 PM EDT XR CHEST 1 VIEW STAT 11/27/2023 8:05 PM EDT XR PELVIS AP VIEW STAT 11/27/2023 8:0 5 PM EDT LACTATE, WHOLE BLOOD WITH REFLEX IF ABNORMAL STAT 11/27/2023 7:54 PM EDT documented in this encounter Results * (ABNORMAL) MICROSCOPIC EXAM, URINE (11/27/2023 10:07 PM EDT) RBC, Urine 3-5(A) 0 - 2 /HPF 11/27/2023 10:34 PM EDT LABORATORY GL WBC, Urine 0-2 0 - 2 /HPF 11/27/2023 10:34 PM EDT LABORATORY GL Bacteria, Urine 26-50(A) 0 - 25 /HPF 11/27/2023 10:34 PM EDT LABORATORY [facility] Urine Non-blood Collection / Unknown 11/27/2023 10:07 PM EDT 11/27/2023 10:09 PM EDT Tara Abdi MD LAB URINE ORDERAB [facility] [address] [address] * (ABNORMAL) URINALYSIS, REFLEX TO MICROSCOPIC (11/27/2023 10:07 PM EDT) Color, Urine Yellow Light Yellow, Yellow, Dark Yellow 11/27/2023 10:31 PM EDT LABORATORY [facility] Clarity, Urine Clear Clear 11/27/2023 10:31 PM EDT LABORATORY GL Glucose, Urine Negative Negative mg/dL 11/27/2023 10:31 PM EDT LABORATORY GL Bilirubin, Urine Negative Negative 11/27/2023 10:31 PM EDT LABORATORY GL Ketone, Urine Negative Negative mg/dL 11/27/2023 10:31 PM EDT LABORATORY GL Specific [place], Urine 1.044(H) 1.003 - 1.030 11/27/2023 10:31 PM EDT LABORATORY GL Blood, Urine Trace(A) Negative 11/27/2023 10:31 PM EDT LABORATORY GL pH, Urine 6.0 5.0 - 7.5 Units 11/27/2023 10:31 PM EDT LABORATORY [facility] Protein, Urine Negative Negative mg/dL 11/27/2023 10:31 PM EDT LABORATORY GL Urobilinogen, Urine 0.2 0.2, 1.0 mg/dL 11/27/2023 10:31 PM EDT LABORATORY GL Nitrite, Urine Negative Negative 11/27/2023 10:31 PM EDT LABORATORY [facility] Esterase, Urine Negative Negative 11/27/2023 10:31 PM EDT LABORATORY [facility] Urine Non-blood Collection / Unknown 11/27/2023 10:07 PM EDT 11/27/2023 10:09 PM EDT Tara Abdi MD LAB URINE [facility] [address] [address] * TOXICOLOGY, URINESCREEN W/ CONFIRMATION (11/27/2023 10:07 PM EDT) [facility] Amphetamines Screen, U Negative Negative 11/27/2023 10:26 PM EDT LABORATORY [facility] Benzodiazepines Screen, U Negative Negative 11/27/2023 10:26 PM EDT LABORATORY [facility] Cannabinoids Screen, U Negative Negative 11/27/2023 10:26 PM EDT LABORATORY [facility] Cocaine Metabolite Screen, U Negative Negative 11/27/2023 10:26 PM EDT LABORATORY [facility] Fentanyl Screen, U Negative Negative 2023 10:26 PM EDT LABORATORY [facility] Hydrocodone Screen, U Negative Negative 11/27/2023 10:26 PM EDT LABORATORY [facility] Methadone Metabolite Screen, U Negative Negative 11/27/2023 10:26 PM EDT LABORATORY [facility] Morphine/Codeine Screen, U Negative Negative 11/27/2023 10:26 PM EDT LABORATORY [facility] Oxycodone Screen, U Negative Negative 11/26 10:26 PM EDT LABORATORY [facility] Urine Non-blood Collection / Unknown 11/27/2023 10:07 PM EDT 11/27/2023 10:09 PM EDT Narrative LABORATORY GL - 11/27/2023 10:26 PM EDT Cutoff Concentrations: Drug Level Amphetamines 500 ng/mL Benzodiazepines 100 ng/mL Cannabinoids 50 ng/mL Cocaine Metabolite 150 ng/mL Fentanyl 1 ng/mL Hydrocodone / Hydromorphone 300 ng/mL Methadone Metabolite 100 ng/mL Morphine / Codeine 300 ng/mL Oxycodone / Oxymorphone 100 ng/mL Screening results are presumptive and can only be used for medical purposes. Positive screening results are reflexed to confirmatory testing. Tara Abdi MD LAB URINE ORDERAB LES LABORAT[facility] [address] [place] [address] * (ABNORMAL) DIFFERENTIAL, AUTOMATED (11/27/2023 8:35 PM EDT) WBC 6.80 4.00 - 10.80 K/uL 11/27/2023 8:43 PM EDT LABORATORY [facility] Neutrophils % 46.4 40.0 - 75.0 % 11/27/2023 8:43 PM EDT LABORATORY [facility] Lymphocytes % 42.6(H) 18.0 - 42.0 % 11/27/2023 8:43 PM EDT LABORATORY [facility] Monocytes % 7.2 1.0 - 11.0 % 11/27/2023 8:43 PM EDT LABORATORY [facility] Eosinophils % 2.4 0.0 - 6.0 % 11/27/2023 8:43 PM EDT LABORATORY [facility] Basophils % 0.7 0.0 - 2.0 % 11/27/2023 8:43 PM EDT LABORATORY [facility] Immature Granulocytes % 0.7 0.0 - 2.0 % 11/27/2023 8:43 PM EDT LAB[facility]ATORY [facility] Absolute Neutrophils 3.15 1.80 - 7.70 K/uL 11/27/2023 8:43 PM EDT LAB[facility] Absolute Lymphocytes 2.90 1.00 - 4.80 K/ul 11/27/2023 8:43 PM EDT [facility] Absolute Monocytes 0.49 0.00 - 1.10 K/uL 11/27/2023 8:43 PM EDT [facility] Absolute Eosinophils 0.16 0.00 - 0.70 K/uL 11/27/2023 8:43 PM EDT [facility] Absolute Basophils 0.05 0.00 - 0.20 K/uL 11/27/2023 8:43 PM EDT LAB[facility] Absolute Immature Granulocytes 0.05 0.00 - 0.20 K/uL 11/27/2023 8:43 PM EDT [facility] Blood Venous blood specimen / Unknown Venipuncture / Unknown 11/27/2023 8:35 PM EDT 11/27/2023 8:39 PM EDT Tara Abdi MD LAB BLOOD ORDERAB LES Performing Organization Address City/[facility]/ZIP Co de Phone Number LABORATORY [address] [phone] * CBC (11/27/2023 8:35 PM EDT) [facility] WBC 6.80 4.00 - 10.80 K/uL 11/27/2023 8:43 PM EDT [facility] RBC 4.08 3.85 - 5.15 M/uL 11/27/2023 8:43 PM EDT [facility] HGB 13.2 12.0 - 15.3 g/dL 11/27/2023 8:43 PM EDT [facility] HCT 37.6 36.0 - 45.2 % 11/27/2023 8:43 PM EDT [facility] MCV 92.2 81.5 - 97.5 fL 11/27/2023 8:43 PM EDT [facility] MCH 32.4 27.0 - 34.0 pg 11/27/2023 8:43 PM EDT [facility] MCHC 35.1 32.0 - 36.0 g/dL 11/27/2023 8:43 PM EDT [facility] RDW 12.4 11.5 - 15.5 % 11/27/2023 8:43 PM EDT [facility] PLT 261 140 - 400 K/uL 11/27/2023 8:43 PM EDT [facility] MPV 9.6 6.6 - 11.1 fL 11/27/2023 8:43 PM EDT [facility] nRBCs 0 <=0 /100 WBCs 11/27/2023 8:43 PM EDT [facility] Blood Venous blood specimen / Unknown Venipuncture / Unknown 11/27/2023 8:35 PM EDT 11/27/2023 8:39 PM EDT Tara Abdi MD LAB BLOOD ORDERAB LES LABORATORY [address] [id number] * TYPE AND SCREEN (11/27/2023 8:35 PM EDT) ABO B 11/27/2023 9:33 PM EDT [facility] BLOOD BANK Rh Negative 11/27/2023 9:33 PM EDT [facility] BLOOD BANK Red Blood Cell Antibody Screen Negative 11/27/2023 9:33 PM EDT [facility] BLOOD BANK Specimen Expiration Date 11/30/2023 23:59 11/27/2023 9:33 PM EDT [facility] BLOOD BANK Blood Venous blood specimen / Unknown Venipuncture / Unknown 11/27/2023 8:35 PM EDT 11/27/2023 8:39 PM EDT Tara Abdi MD LAB BLOOD BANK TE ST ORDERABLES LAB[facility]ATORY [facility] BLOOD BANK [address] [place] [id number] * PT INR (11/27/2023 8:35 PM EDT) Prothrombin Time 12.3 11.6 - 15.2 seconds 11/27/2023 8:54 PM EDT [facility] INR 0.9 0.8 - 1.2 11/27/2023 8:54 PM EDT [facility] Blood Venous blood specimen / Unknown Venipuncture / Unknown 11/27/2023 8:35 PM EDT 11/27/2023 8:39 PM EDT Narrative LAB[facility]ATORY [facility] - 11/27/2023 8:54 PM EDT Warfarin Therapy INR: 2.0-3.0 conventional anticoagulation INR: 2.5-3.5 high intensity anticoagulation Tara Abdi MD LAB BLOOD ORDERAB LES LABORATORY [address] [id number] * ETHANOL, MEDICAL (11/27/2023 8:35 PM EDT) ETHANOL, MEDICAL Negative Negative 11/27/2023 8:56 PM EDT LABORATORY [facility] Blood Venous blood specimen / Unknown Venipuncture / Unknown 11/27/2023 8:35 PM EDT 11/27/2023 8:39 PM EDT Tara Abdi MD LAB BLOOD ORDERAB LES LABORATORY [address] [place] [address] * (ABNORMAL) COMPREHENSIVE METABOLIC PANEL (11/27/2023 8:35 PM EDT) BUN 12 6 - 20 mg/dL 11/27/2023 8:56 PM EDT LABORATORY [facility] Creatinine 1.0 0.5 - 1.0 mg/dL 11/27/2023 8:56 PM EDT LAB[facility] Estimated Glomerular Filtration Rate 66 >=60 mL/min 11/27/2023 8:56 PM EDT [facility] Comment:eGFR is calculated b ased on the CKD-EPI 2020 equation Sodium 138 135 - 146 mmol/L 11/27/2023 8:56 PM EDT LAB[facility] Potassium 3.5 3.5 - 5.1 mmol/L 11/27/2023 8:56 PM EDT [facility] Chloride 106 98 - 107 mmol/L 11/27/2023 8:56 PM EDT [facility] CO2 21(L) 22 - 32 mmol/L 11/27/2023 8:56 PM EDT [facility] Anion Gap 11 7 - 15 mmol/L 11/27/2023 8:56 PM EDT [facility] Glucose 147(H) 70 - 120 mg/dL 11/27/2023 8:56 PM EDT [facility] Albumin 4.0 3.8 - 5.0 g/dL 11/27/2023 8:56 PM EDT [facility] AST 32 10 - 35 U/L 11/27/2023 8:56 PM EDT LAB[facility] Comment:Result may be falsel y elevated due to hemolysis. Alkaline Phosphatase 74 35 - 130 U/L 11/27/2023 8:56 PM EDT LAB[facility] Bilirubin, Total 0.3 <=1.2 mg/dL 11/27/2023 8:56 PM EDT LAB[facility] Calcium 9.2 8.4 - 10.2 mg/dL 11/27/2023 8:56 PM EDT [facility] Protein 7.0 6.0 - 8.3 g/dL 11/27/2023 8:56 PM EDT [facility] ALT 25 10 - 35 U/L 11/27/2023 8:56 PM EDT LAB[facility] Blood Venous blood specimen / Unknown Venipuncture / Unknown 11/27/2023 8:35 PM EDT 11/27/2023 8:39 PM EDT Tara Abdi MD LAB BLOOD ORDERAB LES Performing Organization Address [facility] [place] [address] * EXTRA BILLS TOP (11/27/2023 8:32 PM EDT) Blood Venous blood specimen / Unknown 11/27/2023 8:32 PM EDT 11/27/2023 8:40 PM EDT Tara Abdi MD LAB BLOOD ORDERAB LES Performing Organization Address [facility] [place] [address] * EXTRA GREEN TOP WITH GEL (11/27/2023 8:32 PM EDT) Blood Venous blood specimen / Unknown 11/27/2023 8:32 PM EDT 11/27/2023 8:40 PM EDT Tara Abdi MD LAB BLOOD ORDERAB LES Performing Organization Address [facility] [place] [address] * XR ANKLE 3 OR MORE VIEWS (11/27/2023 8:29 PM EDT) Anatomical Region Laterality Modality Ankle, Lower Extremity Digital R adiography 11/27/2023 8:16 PM EDT Impressions 11/27/2023 9:06 PM EDT IMPRESSION: No acute findings. THIS DOCUMENT HAS BEEN ELECTRONICALLY SIGNED BY RODY SOSA MD Narrative 11/27/2023 9:06 PM EDT PROCEDURE INFORMATION: Exam: XR Left Ankle Exam date and time: 11/27/2023 8:16 PM Age: 58 years old Clinical indication: Other: Fall; Additional info: Left ankle injury after fall TECHNIQUE: Imaging protocol: Radiologic exam of the left ankle. Views: 3 or more views. COMPARISON: No relevant prior studies available. FINDINGS: Bones/joints: No acute fracture or dislocation in the right ankle. Soft tissues: Normal. Procedure Note Rody Sosa MD - 11/27/2023 PROCEDURE INFORMATION: Exam: XR Left Ankle Exam date and time: 11/27/2023 8:16 PM Age: 58 years old Clinical indication: Other: Fall; Additional info: Left ankle injury afterfall TECHNIQUE: Imaging protocol: Radiologic exam of the left ankle. Views: 3 or more views. COMPARISON: No relevant prior studies available. FINDINGS: Bones/joints: No acute fracture or dislocation in the right ankle. Soft tissues: Normal. IMPRESSION IMPRESSION: No acute findings. THIS DOCUMENT HAS BEEN ELECTRONICALLY SIGNED BY RODY SOSA MD Tara Abdi MD RADIOLOGY ([facility]) * XR FEMUR MINIMUM 2 VIEWS (11/27/2023 8:29 PM EDT) Anatomical Region Laterality Modality Femur, Lower Extremity, Hip Digi nicole Radiography 11/27/2023 8:16 PM EDT Impressions 11/27/2023 9:09 PM EDT IMPRESSION: No acute findings. PROCEDURE INFORMATION: Exam: XR Left Femur Exam date and time: 11/27/2023 8:16 PM Clinical indication: Other: Fall; Additional info: Bilateral thigh pain after fall TECHNIQUE: Imaging protocol: Radiologic exam of the left femur. Views: 2 views. COMPARISON: No relevant prior studies available. FINDINGS: Bones/joints: Unremarkable. No acute fracture. Soft tissues: Unremarkable. IMPRESSION: No acute findings. THIS DOCUMENT HAS BEEN ELECTRONICALLY SIGNED BY RODY SOSA MD Narrative 11/27/2023 9:09 PM EDT PROCEDURE INFORMATION: Exam: XR Right Femur Exam date and time: 11/27/2023 8:16 PM Age: 58 years old Clinical indication: Other: Fall; Additional info: Bilateral thigh pain after fall TECHNIQUE: Imaging protocol: Radiologic exam of the right femur. Views: 2 views. COMPARISON: CT ABD/PELVIS W IV CONTRAST - WO ORAL CONTRAST 11/27/2023 8:05 PM FINDINGS: Bones/joints: Unremarkable. No acute fracture. Soft tissues: Unremarkable. Procedure Note Rody Sosa MD - 11/27/2023 PROCEDURE INFORMATION: Exam: XR Right Femur Exam date and time: 11/27/2023 8:16 PM Age: 58 years old Clinical indication: Other: Fall; Additional info: Bilateral thigh painafter fall TECHNIQUE: Imaging protocol: Radiologic exam of the right femur. Views: 2 views. COMPARISON: CT ABD/PELVIS W IV CONTRAST - WO ORAL CONTRAST 11/27/2023 8:05 PM FINDINGS: Bones/joints: Unremarkable. No acute fracture. Soft tissues: Unremarkable. IMPRESSION IMPRESSION: No acute findings. PROCEDURE INFORMATION: Exam: XR Left Femur Exam date and time: 11/27/2023 8:16 PM Clinical indication: Other: Fall; Additional info: Bilateral thigh painafter fall TECHNIQUE: Imaging protocol: Radiologic exam of the left femur. Views: 2 views. COMPARISON: No relevant prior studies available. FINDINGS: Bones/joints: Unremarkable. No acute fracture. Soft tissues: Unremarkable. IMPRESSION: No acute findings. THIS DOCUMENT HAS BEEN ELECTRONICALLY SIGNED BY RODY SOSA MD Tara Abdi MD RADIOLOGY ([facility]) * XR SHOULDER, 2 OR MORE VIEWS (11/27/2023 8:29 PM EDT) Anatomical Region Laterality Modality Upper Extremity, Shoulder Digita l Radiography 11/27/2023 8:16 PM EDT Impressions 11/27/2023 9:07 PM EDT IMPRESSION: Acute inferior displaced fracture of the mid left clavicle. THIS DOCUMENT HAS BEEN ELECTRONICALLY SIGNED BY RODY SOSA MD Narrative 11/27/2023 9:07 PM EDT PROCEDURE INFORMATION: Exam: XR Left Shoulder Exam date and time: 11/27/2023 8:16 PM Age: 58 years old Clinical indication: Other: Fall; Additional info: Left shoulder pain after fall TECHNIQUE: Imaging protocol: Radiologic exam of the left shoulder. Views: 2 or more views. COMPARISON: CT ABD/PELVIS W IV CONTRAST - WO ORAL CONTRAST 11/27/2023 8:05 PM FINDINGS: Bones/joints: Acute fracture involving the mid left clavicle with inferior displacement measuring up to 2 cm. No dislocation. Soft tissues: Normal. Procedure Note Rody Sosa MD - 11/27/2023 PROCEDURE INFORMATION: Exam: XR Left Shoulder Exam date and time: 11/27/2023 8:16 PM Age: 58 years old Clinical indication: Other: Fall; Additional info: Left shoulder painafter fall TECHNIQUE: Imaging protocol: Radiologic exam of the left shoulder. Views: 2 or more views. COMPARISON: CT ABD/PELVIS W IV CONTRAST - WO ORAL CONTRAST 11/27/2023 8:05 PM FINDINGS: Bones/joints: Acute fracture involving the mid left clavicle with inferior displacement measuring up to 2 cm. No dislocation. Soft tissues: Normal. IMPRESSION IMPRESSION: Acute inferior displaced fracture of the mid left clavicle. THIS DOCUMENT HAS BEEN ELECTRONICALLY SIGNED BY RODY SOSA MD Tara Abdi MD RADIOLOGY ([facility]) * CT ABD/PELVIS W IV CONTRAST - WO ORAL CONTRAST (11/27/2023 8:13 PM EDT) Anatomical Region Laterality Modality Body, Abdomen, Pelvis Computed T omography 11/27/2023 8:05 PM EDT Impressions 11/27/2023 8:42 PM EDT IMPRESSION: No acute intrathoracic injuries spare PROCEDURE INFORMATION: Exam: CT Abdomen And Pelvis With Contrast Exam date and time: 11/27/2023 8:05 PM Age: 58 years old Clinical indication: Injury or trauma; Fall; Generalized; Blunt trauma (contusions or hematomas); Additional info: Significant trauma with possible severe intraabdominal injury or abdominal pain TECHNIQUE: Imaging protocol: Computed tomography of the abdomen and pelvis with contrast. 3D rendering (Not supervised by radiologist): MIP and/or 3D reconstructed images were created by the technologist. Radiation optimization: All CT scans at this facility use at least one of these dose optimization techniques: automated exposure control; mA and/or kV adjustment per patient size (includes targeted exams where dose is matched to clinical indication); or iterative reconstruction. Contrast material: ISOVUE 370; Contrast volume: 80 ml; Contrast route: INTRAVENOUS (IV); COMPARISON: DX (PELVIS AP, PELVIS, PELVIS AP GRID) 11/27/2023 7:54 PM FINDINGS: Liver: Normal. No mass. Gallbladder and bile ducts: Normal. No calcified stones. No ductal dilation. Pancreas: Normal. No ductal dilation. Spleen: Normal. No splenomegaly. Adrenal glands: Normal. No mass. Kidneys and ureters: Normal. No hydronephrosis. Stomach and bowel: Unremarkable. No obstruction. No mucosal thickening. Appendix: No evidence of appendicitis. Intraperitoneal space: Unremarkable. No free air. No significant fluid collection. Vasculature: Unremarkable. No abdominal aortic aneurysm. Lymph nodes: Unremarkable. No enlarged lymph nodes. Urinary bladder: Unremarkable as visualized. Reproductive: Unremarkable as visualized. Bones/joints: Unremarkable. No acute fracture. Soft tissues: Unremarkable. IMPRESSION: No acute intra-abdominal or pelvic injuries. THIS DOCUMENT HAS BEEN ELECTRONICALLY SIGNED BY RODY SOSA MD Narrative 11/27/2023 8:42 PM EDT PROCEDURE INFORMATION: Exam: CT Chest With Contrast; Diagnostic Exam date and time: 11/27/2023 8:05 PM Age: 58 years old Clinical indication: Injury or trauma; Fall; Generalized; Blunt trauma (contusions or hematomas); Additional info: Significant trauma with possible severe intraabdominal injury or abdominal pain TECHNIQUE: Imaging protocol: Diagnostic computed tomography of the chest with contrast. 3D rendering (Not supervised by radiologist): MIP and/or 3D reconstructed images were created by the technologist. Radiation optimization: All CT scans at this facility use at least one of these dose optimization techniques: automated exposure control; mA and/or kV adjustment per patient size (includes targeted exams where dose is matched to clinical indication); or iterative reconstruction. Contrast material: ISOVUE 370; Contrast volume: 80 ml; Contrast route: INTRAVENOUS (IV); COMPARISON: CT PULMONARY EMBOLUS W CONTRAST 10/05/2022 3:30 AM FINDINGS: Lungs: Dependent bibasilar atelectasis. No pulmonary nodules. No focal consolidation or lung contusion injuries. Pleural spaces: Unremarkable. No pneumothorax. No pleural effusion. Heart: Unremarkable. No cardiomegaly. No pericardial effusion. Lymph nodes: Unremarkable. No enlarged lymph nodes. Vasculature: Unremarkable. No aortic aneurysm. Bones/joints: Unremarkable. No acute fracture. Soft tissues: Unremarkable. Procedure Note Rody Sosa MD - 11/27/2023 PROCEDURE INFORMATION: Exam: CT Chest With Contrast; Diagnostic Exam date and time: 11/27/2023 8:05 PM Age: 58 years old Clinical indication: Injury or trauma; Fall; Generalized; Blunt trauma (contusions or hematomas); Additional info: Significant trauma withpossible severe intraabdominal injury or abdominal pain TECHNIQUE: Imaging protocol: Diagnostic computed tomography of the chest withcontrast. 3D rendering (Not supervised by radiologist): MIP and/or 3D reconstructed images were created by the technologist. Radiation optimization: All CT scans at this facility use at least one ofthese dose optimization techniques: automated exposure control; mA and/or kV adjustment per patient size (includes targeted exams where dose is matchedto clinical indication); or iterative reconstruction. Contrast material: ISOVUE 370; Contrast volume: 80 ml; Contrast route: INTRAVENOUS (IV); COMPARISON: CT PULMONARY EMBOLUS W CONTRAST 10/05/2022 3:30 AM FINDINGS: Lungs: Dependent bibasilar atelectasis. No pulmonary nodules. No focal consolidation or lung contusion injuries. Pleural spaces: Unremarkable. No pneumothorax. No pleural effusion. Heart: Unremarkable. No cardiomegaly. No pericardial effusion. Lymph nodes: Unremarkable. No enlarged lymph nodes. Vasculature: Unremarkable. No aortic aneurysm. Bones/joints: Unremarkable. No acute fracture. Soft tissues: Unremarkable. IMPRESSION IMPRESSION: No acute intrathoracic injuries spare PROCEDURE INFORMATION: Exam: CT Abdomen And Pelvis With Contrast Exam date and time: 11/27/2023 8:05 PM Age: 58 years old Clinical indication: Injury or trauma; Fall; Generalized; Blunt trauma (contusions or hematomas); Additional info: Significant trauma withpossible severe intraabdominal injury or abdominal pain TECHNIQUE: Imaging protocol: Computed tomography of the abdomen and pelvis withcontrast. 3D rendering (Not supervised by radiologist): MIP and/or 3D reconstructed images were created by the technologist. Radiation optimization: All CT scans at this facility use at least one ofthese dose optimization techniques: automated exposure control; mA and/or kV adjustment per patient size (includes targeted exams where dose is matchedto clinical indication); or iterative reconstruction. Contrast material: ISOVUE 370; Contrast volume: 80 ml; Contrast route: INTRAVENOUS (IV); COMPARISON: DX (PELVIS AP, PELVIS, PELVIS AP GRID) 11/27/2023 7:54 PM FINDINGS: Liver: Normal. No mass. Gallbladder and bile ducts: Normal. No calcified stones. No ductaldilation. Pancreas: Normal. No ductal dilation. Spleen: Normal. No splenomegaly. Adrenal glands: Normal. No mass. Kidneys and ureters: Normal. No hydronephrosis. Stomach and bowel: Unremarkable. No obstruction. No mucosal thickening. Appendix: No evidence of appendicitis. Intraperitoneal space: Unremarkable. No free air. No significant fluid collection. Vasculature: Unremarkable. No abdominal aortic aneurysm. Lymph nodes: Unremarkable. No enlarged lymph nodes. Urinary bladder: Unremarkable as visualized. Reproductive: Unremarkable as visualized. Bones/joints: Unremarkable. No acute fracture. Soft tissues: Unremarkable. IMPRESSION: No acute intra-abdominal or pelvic injuries. THIS DOCUMENT HAS BEEN ELECTRONICALLY SIGNED BY RODY SOSA MD Tara Abdi MD RAD CT * CT CHEST W CONTRAST (11/27/2023 8:13 PM EDT) Anatomical Region Laterality Modality Chest, Body, Cardio Computed Baldev ography 11/27/2023 8:05 PM EDT Impressions 11/27/2023 8:42 PM EDT IMPRESSION: No acute intrathoracic injuries spare PROCEDURE INFORMATION: Exam: CT Abdomen And Pelvis With Contrast Exam date and time: 11/27/2023 8:05 PM Age: 58 years old Clinical indication: Injury or trauma; Fall; Generalized; Blunt trauma (contusions or hematomas); Additional info: Significant trauma with possible severe intraabdominal injury or abdominal pain TECHNIQUE: Imaging protocol: Computed tomography of the abdomen and pelvis with contrast. 3D rendering (Not supervised by radiologist): MIP and/or 3D reconstructed images were created by the technologist. Radiation optimization: All CT scans at this facility use at least one of these dose optimization techniques: automated exposure control; mA and/or kV adjustment per patient size (includes targeted exams where dose is matched to clinical indication); or iterative reconstruction. Contrast material: ISOVUE 370; Contrast volume: 80 ml; Contrast route: INTRAVENOUS (IV); COMPARISON: DX (PELVIS AP, PELVIS, PELVIS AP GRID) 11/27/2023 7:54 PM FINDINGS: Liver: Normal. No mass. Gallbladder and bile ducts: Normal. No calcified stones. No ductal dilation. Pancreas: Normal. No ductal dilation. Spleen: Normal. No splenomegaly. Adrenal glands: Normal. No mass. Kidneys and ureters: Normal. No hydronephrosis. Stomach and bowel: Unremarkable. No obstruction. No mucosal thickening. Appendix: No evidence of appendicitis. Intraperitoneal space: Unremarkable. No free air. No significant fluid collection. Vasculature: Unremarkable. No abdominal aortic aneurysm. Lymph nodes: Unremarkable. No enlarged lymph nodes. Urinary bladder: Unremarkable as visualized. Reproductive: Unremarkable as visualized. Bones/joints: Unremarkable. No acute fracture. Soft tissues: Unremarkable. IMPRESSION: No acute intra-abdominal or pelvic injuries. THIS DOCUMENT HAS BEEN ELECTRONICALLY SIGNED BY RODY SOSA MD Narrative 11/27/2023 8:42 PM EDT PROCEDURE INFORMATION: Exam: CT Chest With Contrast; Diagnostic Exam date and time: 11/27/2023 8:05 PM Age: 58 years old Clinical indication: Injury or trauma; Fall; Generalized; Blunt trauma (contusions or hematomas); Additional info: Significant trauma with possible severe intraabdominal injury or abdominal pain TECHNIQUE: Imaging protocol: Diagnostic computed tomography of the chest with contrast. 3D rendering (Not supervised by radiologist): MIP and/or 3D reconstructed images were created by the technologist. Radiation optimization: All CT scans at this facility use at least one of these dose optimization techniques: automated exposure control; mA and/or kV adjustment per patient size (includes targeted exams where dose is matched to clinical indication); or iterative reconstruction. Contrast material: ISOVUE 370; Contrast volume: 80 ml; Contrast route: INTRAVENOUS (IV); COMPARISON: CT PULMONARY EMBOLUS W CONTRAST 10/05/2022 3:30 AM FINDINGS: Lungs: Dependent bibasilar atelectasis. No pulmonary nodules. No focal consolidation or lung contusion injuries. Pleural spaces: Unremarkable. No pneumothorax. No pleural effusion. Heart: Unremarkable. No cardiomegaly. No pericardial effusion. Lymph nodes: Unremarkable. No enlarged lymph nodes. Vasculature: Unremarkable. No aortic aneurysm. Bones/joints: Unremarkable. No acute fracture. Soft tissues: Unremarkable. Procedure Note Rody Sosa MD - 11/27/2023 PROCEDURE INFORMATION: Exam: CT Chest With Contrast; Diagnostic Exam date and time: 11/27/2023 8:05 PM Age: 58 years old Clinical indication: Injury or trauma; Fall; Generalized; Blunt trauma (contusions or hematomas); Additional info: Significant trauma withpossible severe intraabdominal injury or abdominal pain TECHNIQUE: Imaging protocol: Diagnostic computed tomography of the chest withcontrast. 3D rendering (Not supervised by radiologist): MIP and/or 3D reconstructed images were created by the technologist. Radiation optimization: All CT scans at this facility use at least one ofthese dose optimization techniques: automated exposure control; mA and/or kV adjustment per patient size (includes targeted exams where dose is matchedto clinical indication); or iterative reconstruction. Contrast material: ISOVUE 370; Contrast volume: 80 ml; Contrast route: INTRAVENOUS (IV); COMPARISON: CT PULMONARY EMBOLUS W CONTRAST 10/05/2022 3:30 AM FINDINGS: Lungs: Dependent bibasilar atelectasis. No pulmonary nodules. No focal consolidation or lung contusion injuries. Pleural spaces: Unremarkable. No pneumothorax. No pleural effusion. Heart: Unremarkable. No cardiomegaly. No pericardial effusion. Lymph nodes: Unremarkable. No enlarged lymph nodes. Vasculature: Unremarkable. No aortic aneurysm. Bones/joints: Unremarkable. No acute fracture. Soft tissues: Unremarkable. IMPRESSION IMPRESSION: No acute intrathoracic injuries spare PROCEDURE INFORMATION: Exam: CT Abdomen And Pelvis With Contrast Exam date and time: 11/27/2023 8:05 PM Age: 58 years old Clinical indication: Injury or trauma; Fall; Generalized; Blunt trauma (contusions or hematomas); Additional info: Significant trauma withpossible severe intraabdominal injury or abdominal pain TECHNIQUE: Imaging protocol: Computed tomography of the abdomen and pelvis withcontrast. 3D rendering (Not supervised by radiologist): MIP and/or 3D reconstructed images were created by the technologist. Radiation optimization: All CT scans at this facility use at least one ofthese dose optimization techniques: automated exposure control; mA and/or kV adjustment per patient size (includes targeted exams where dose is matchedto clinical indication); or iterative reconstruction. Contrast material: ISOVUE 370; Contrast volume: 80 ml; Contrast route: INTRAVENOUS (IV); COMPARISON: DX (PELVIS AP, PELVIS, PELVIS AP GRID) 11/27/2023 7:54 PM FINDINGS: Liver: Normal. No mass. Gallbladder and bile ducts: Normal. No calcified stones. No ductaldilation. Pancreas: Normal. No ductal dilation. Spleen: Normal. No splenomegaly. Adrenal glands: Normal. No mass. Kidneys and ureters: Normal. No hydronephrosis. Stomach and bowel: Unremarkable. No obstruction. No mucosal thickening. Appendix: No evidence of appendicitis. Intraperitoneal space: Unremarkable. No free air. No significant fluid collection. Vasculature: Unremarkable. No abdominal aortic aneurysm. Lymph nodes: Unremarkable. No enlarged lymph nodes. Urinary bladder: Unremarkable as visualized. Reproductive: Unremarkable as visualized. Bones/joints: Unremarkable. No acute fracture. Soft tissues: Unremarkable. IMPRESSION: No acute intra-abdominal or pelvic injuries. THIS DOCUMENT HAS BEEN ELECTRONICALLY SIGNED BY RODY SOSA MD Tara Abdi MD RAD CT * CT C SPINE WO CONTRAST (11/27/2023 8:13 PM EDT) Anatomical Region Laterality Modality Cspine, Spine, Neck, Vertebra Co mputed Tomography 11/27/2023 8:01 PM EDT Impressions 11/27/2023 9:08 PM EDT IMPRESSION: No evidence of acute fracture or malalignment of the cervical spine. COMMENTS: Consistent with the [employer]'s Incidental Findings Committee white paper ([employer]iol 2015): In patients aged 35 years and older with an incidental thyroid nodule equal to or greater than 1.[address], MRI or extrathyroidal US, further evaluation with dedicated thyroid US is recommended for patients with normal life expectancy and without comorbidities. For smaller nodules without suspicious features, no further evaluation or follow up is recommended. THIS DOCUMENT HAS BEEN ELECTRONICALLY SIGNED BY DASHA TORREZ MD Narrative 11/27/2023 9:08 PM EDT PROCEDURE INFORMATION: Exam: CT Cervical Spine Without Contrast Exam date and time: 11/27/2023 8:01 PM Age: 58 years old Clinical indication: Injury or trauma; Fall; Blunt trauma; Additional info: Significant trauma with possible severe neurologic injury or neck pain TECHNIQUE: Imaging protocol: Computed tomography of the cervical spine without contrast. Radiation optimization: All CT scans at this facility use at least one of these dose optimization techniques: automated exposure control; mA and/or kV adjustment per patient size (includes targeted exams where dose is matched to clinical indication); or iterative reconstruction. COMPARISON: CT HEAD/BRAIN WO CONTRAST 11/27/2023 8:01 PM FINDINGS: Bones: No evidence of acute fracture or malalignment. Degenerative changes are noted throughout the cervical spine, with multilevel disc space narrowing, posterior disc osteophyte formation, degenerative facet arthropathy and neural foraminal stenosis. Lungs: Lung apices are normal. Thyroid: Multiple subcentimeter low-attenuation thyroid nodules are noted bilaterally. No follow-up imaging is recommended. Soft tissues: Unremarkable. Procedure Note Dasha Torrez MD - 11/27/2023 PROCEDURE INFORMATION: Exam: CT Cervical Spine Without Contrast Exam date and time: 11/27/2023 8:01 PM Age: 58 years old Clinical indication: Injury or trauma; Fall; Blunt trauma; Additionalinfo: Significant trauma with possible severe neurologic injury or neck pain TECHNIQUE: Imaging protocol: Computed tomography of the cervical spine withoutcontrast. Radiation optimization: All CT scans at this facility use at least one ofthese dose optimization techniques: automated exposure control; mA and/or kV adjustment per patient size (includes targeted exams where dose is matchedto clinical indication); or iterative reconstruction. COMPARISON: CT HEAD/BRAIN WO CONTRAST 11/27/2023 8:01 PM FINDINGS: Bones: No evidence of acute fracture or malalignment. Degenerative changesare noted throughout the cervical spine, with multilevel disc space narrowing, posterior disc osteophyte formation, degenerative facet arthropathy andneural foraminal stenosis. Lungs: Lung apices are normal. Thyroid: Multiple subcentimeter low-attenuation thyroid nodules are noted bilaterally. No follow-up imaging is recommended. Soft tissues: Unremarkable. IMPRESSION IMPRESSION: No evidence of acute fracture or malalignment of the cervical spine. COMMENTS: Consistent with the [employer]'s Incidental Findings Committee white paper (J [employer]iol 2015): In patients aged 35 yearsand older with an incidental thyroid nodule equal to or greater than 1.[address], MRI or extrathyroidal US, further evaluation withdedicated thyroid US is recommended for patients with normal life expectancy andwithout comorbidities. For smaller nodules without suspicious features, no further evaluation or follow up is recommended. THIS DOCUMENT HAS BEEN ELECTRONICALLY SIGNED BY DASHA TORREZ MD Tara Abdi MD RAD CT * CT HEAD/BRAIN WO CONTRAST (11/27/2023 8:13 PM EDT) Anatomical Region Laterality Modality Head Computed Tomogra phy 11/27/2023 8:01 PM EDT Impressions 11/27/2023 9:01 PM EDT IMPRESSION: No acute intracranial abnormality. THIS DOCUMENT HAS BEEN ELECTRONICALLY SIGNED BY DASHA TORREZ MD Narrative 11/27/2023 9:01 PM EDT PROCEDURE INFORMATION: Exam: CT Head Without Contrast Exam date and time: 11/27/2023 8:01 PM Age: 58 years old Clinical indication: Injury or trauma; Fall; Blunt trauma (contusions or hematomas); Additional info: Significant trauma with possible severe neurologic injury or head pain TECHNIQUE: Imaging protocol: Computed tomography of the head without contrast. Radiation optimization: All CT scans at this facility use at least one of these dose optimization techniques: automated exposure control; mA and/or kV adjustment per patient size (includes targeted exams where dose is matched to clinical indication); or iterative reconstruction. COMPARISON: CT C SPINE WO CONTRAST 11/27/2023 8:01 PM FINDINGS: Brain: There is no evidence of midline shift, mass effect or cerebral edema. No acute intracranial hemorrhage is identified. Cerebral ventricles: No ventriculomegaly. Paranasal sinuses: Mucosal thickening is noted within the right maxillary sinus and cells. No air-fluid levels. Mastoid air cells: Small left mastoid fusion. Bones: Unremarkable. No acute fracture. Soft tissues: Unremarkable. Procedure Note Dasha Torrez MD - 11/27/2023 PROCEDURE INFORMATION: Exam: CT Head Without Contrast Exam date and time: 11/27/2023 8:01 PM Age: 58 years old Clinical indication: Injury or trauma; Fall; Blunt trauma (contusions or hematomas); Additional info: Significant trauma with possible severeneurologic injury or head pain TECHNIQUE: Imaging protocol: Computed tomography of the head without contrast. Radiation optimization: All CT scans at this facility use at least one ofthese dose optimization techniques: automated exposure control; mA and/or kV adjustment per patient size (includes targeted exams where dose is matchedto clinical indication); or iterative reconstruction. COMPARISON: CT C SPINE WO CONTRAST 11/27/2023 8:01 PM FINDINGS: Brain: There is no evidence of midline shift, mass effect or cerebraledema. No acute intracranial hemorrhage is identified. Cerebral ventricles: No ventriculomegaly. Paranasal sinuses: Mucosal thickening is noted within the right maxillarysinus and cells. No air-fluid levels. Mastoid air cells: Small left mastoid fusion. Bones: Unremarkable. No acute fracture. Soft tissues: Unremarkable. IMPRESSION IMPRESSION: No acute intracranial abnormality. THIS DOCUMENT HAS BEEN ELECTRONICALLY SIGNED BY DASHA TORREZ MD Tara Abdi MD RAD CT * XR PELVIS 1 VIEW (11/27/2023 8:05 PM EDT) Anatomical Region Laterality Modality Pelvis, Lower Extremity Digital Radiography 11/27/2023 7:54 PM EDT Impressions 11/27/2023 8:37 PM EDT IMPRESSION: No acute findings. THIS DOCUMENT HAS BEEN ELECTRONICALLY SIGNED BY RODY SOSA MD Narrative 11/27/2023 8:37 PM EDT PROCEDURE INFORMATION: Exam: XR Pelvis Exam date and time: 11/27/2023 7:54 PM Age: 58 years old Clinical indication: Other: Fall; Additional info: Trauma TECHNIQUE: Imaging protocol: Radiologic exam of the pelvis. Views: 1 or 2 view. COMPARISON: No relevant prior studies available. FINDINGS: Bones/joints: Unremarkable. No acute fracture. Soft tissues: Unremarkable. Procedure Note Rody Sosa MD - 11/27/2023 PROCEDURE INFORMATION: Exam: XR Pelvis Exam date and time: 11/27/2023 7:54 PM Age: 58 years old Clinical indication: Other: Fall; Additional info: Trauma TECHNIQUE: Imaging protocol: Radiologic exam of the pelvis. Views: 1 or 2 view. COMPARISON: No relevant prior studies available. FINDINGS: Bones/joints: Unremarkable. No acute fracture. Soft tissues: Unremarkable. IMPRESSION IMPRESSION: No acute findings. THIS DOCUMENT HAS BEEN ELECTRONICALLY SIGNED BY RODY SOSA MD Tara Abdi MD [facility]OLOGY ([facility] * XR CHEST 1 VIEW (11/27/2023 8:05 PM EDT) Anatomical Region Laterality Modality Chest Digital Radiogra phy 11/27/2023 7:51 PM EDT Impressions 11/27/2023 8:38 PM EDT IMPRESSION: No acute findings. THIS DOCUMENT HAS BEEN ELECTRONICALLY SIGNED BY RODY SOSA MD Narrative 11/27/2023 8:38 PM EDT PROCEDURE INFORMATION: Exam: XR Chest Exam date and time: 11/27/2023 7:51 PM Age: 58 years old Clinical indication: Other: Fall; Additional info: Trauma TECHNIQUE: Imaging protocol: Radiologic exam of the chest. Views: 1 view. COMPARISON: CT PULMONARY EMBOLUS W CONTRAST 10/05/2022 3:30 AM FINDINGS: Lungs: Unremarkable. No consolidation. Pleural spaces: Unremarkable. No pleural effusion. No pneumothorax. Heart/Mediastinum: Unremarkable. No cardiomegaly. Bones/joints: Unremarkable. Procedure Note Rody Sosa MD - 11/27/2023 PROCEDURE INFORMATION: Exam: XR Chest Exam date and time: 11/27/2023 7:51 PM Age: 58 years old Clinical indication: Other: Fall; Additional info: Trauma TECHNIQUE: Imaging protocol: Radiologic exam of the chest. Views: 1 view. COMPARISON: CT PULMONARY EMBOLUS W CONTRAST 10/05/2022 3:30 AM FINDINGS: Lungs: Unremarkable. No consolidation. Pleural spaces: Unremarkable. No pleural effusion. No pneumothorax. Heart/Mediastinum: Unremarkable. No cardiomegaly. Bones/joints: Unremarkable. IMPRESSION IMPRESSION: No acute findings. THIS DOCUMENT HAS BEEN ELECTRONICALLY SIGNED BY RODY SOSA MD Tara Abdi MD RADIOLOGY (RAD [facility]) * (ABNORMAL) LACTATE, WHOLE BLOOD WITH REFLEX IF ABNORMAL (11/27/2023 7:54 PM EDT) Lactate, Whole Blood 2.9(H) 0.4 - 2.0 mmol/L 11/27/2023 8:07 PM EDT [facility] Blood Venous blood specimen / Unknown Venipuncture / Unknown 11/27/2023 7:54 PM EDT 11/27/2023 7:57 PM EDT Tara Abdi MD LAB BLOOD ORDERAB LES [facility] [address] [place] [address] documented in this encounter Visit Diagnoses Diagnosis Fall into hole as cause of accidental injury- Primary Closed displaced fracture of shaft of left clavicle, initial encounter Contusion of multiple sites Contusion of multiple sites, not elsewhere classified documented in this encounter Administered Medications Inactive Administered Medications - up to 3 most recent administrations Medication Order MAR Action Action Date Dose Rate Site Acetaminophen (Ofirmev) inj 1,000 mg 1,000 mg, Intravenous, ONCE, 1 dose, On Mon11/27/23 at 2115, Administer over 15 Minutes, Administer undiluted over 15 minutes! NOTE: Maximum of 4000 mg per 24 hours of acetaminophen from all acetaminophen containing products., Indication: Patient is strictly NPO New Bag 11/27/2023 9:25 PM EDT 1,000 mg 400 mL/hr Iopamidol (Isovue 370) inj 80 mL 80 mL, Intravenous, ONCE, On Mon11/27/23 at 2045, For 1 dose, Radiology Medication Routing (Non-IR) Given 11/27/2023 8:45 PM EDT 80 mL oxygen GAS Inhalation, OXYGEN, First dose on Mon11/28/23 at 0000, Until Discontinued, Device/Managed by: Low Flow Device, Goal SPO2 (%): 94 or greater, Starting Device: Nasal Cannula, Initial Flow Rate (LPM): 2, Lowest Support: Nasal Cannula: Flow 0-6 LPM. Titrate up/down by 1 LPM., Titration Interval: Q2 minutes and as needed., Notify Provider: For sudden DECREASE in resting SPO2 to less than 85% and when escalating delivery device., Wean patient off Oxygen when the oxygen saturation is greater than or equal to 93% sodium chloride 0.9 % flush peripheral edy 3 mL 3 mL, IV Push, QSHIFT, First dose on Mon11/28/23 at 0000, Until Discontinued, Do not flush if lock, PICC, or central line not in place; IV infusing or unable to flush. documented in this encounter Active and Recently Administered Medications Times are shown in EDT. Scheduled Medication Order 11/25/2023 11/26/2023 11/27/2023 Acetaminophen (Ofirmev) inj 1,000 mg (COMPLETED) 1,000 mg, Intravenous, ONCE, 1 dose, On Mon11/27/23 at 2115, Administer over 15 Minutes, Administer undiluted over 15 minutes! NOTE: Maximum of 4000 mg per 24 hours of acetaminophen from all acetaminophen containing products., Indication: Patient is strictly NPO 2124 (New Bag - Prov ider: Zeynep Christine RN)2212 (Stopped - Provider: Zeynep Christine RN) Iopamidol (Isovue 370) inj 80 mL (COMPLETED) 80 mL, Intravenous, ONCE, On Mon11/27/23 at 2044, For 1 dose, Radiology Medication Routing (Non-IR) 2044 (Given - Provid er: Arti Bautista, RT) Morphine Sulfate (PF) inj 4 mg 4 mg, IV Push, ONCE, On Mon11/27/23 at 2044, For 1 dose 2044 (Not Given - Pr ovider: Zeynep Christine RN - Reason: Refused-Notify Provider - Comment: Provider aware) ondansetron (Zofran) inj 4 mg 4 mg, IV Push, ONCE, On Mon11/27/23 at 2044, For 1 dose 2044 (Not Given - Pr ovider: Zeynep Christine RN - Reason: Refused-Notify Provider - Comment: Provider aware) oxygen GAS Inhalation, OXYGEN, First dose on Mon11/28/23 at 0000, Until Discontinued, Device/Managed by: Low Flow Device, Goal SPO2 (%): 94 or greater, Starting Device: Nasal Cannula, Initial Flow Rate (LPM): 2, Lowest Support: Nasal Cannula: Flow 0-6 LPM. Titrate up/down by 1 LPM., Titration Interval: Q2 minutes and as needed., Notify Provider: For sudden DECREASE in resting SPO2 to less than 85% and when escalating delivery device., Wean patient off Oxygen when the oxygen saturation is greater than or equal to 93% sodium chloride 0.9 % flush peripheral edy 3 mL 3 mL, IV Push, QSHIFT, First dose on Mon11/28/23 at 0000, Until Discontinued, Do not flush if lock, PICC, or central line not in place; IV infusing or unable to flush. documented in this encounter Care Teams Tube Turner Relationship Specialty Start Date End Date Sharona Kaminski CRNP [address] [place] [address] PCP - General Nurse Practitioner 01/28/20 documented as of this encounter
--- OUTSIDE RECORDS SUMMARY | 2023-12-09 17:44 | External Medical Summary ---
Author Name Unknown Address Unknown Organization K1F:LABORATORY [address] [place] [address] Laboratory Report Ordering Provider Test Date Status BETTE CARDENAS 11/27/2023 22:07:37 Final Cutoff Concentrations:
Drug Level
Amphetamines 500 ng/mL
Benzodiazepines 100 ng/mL
Cannabinoids 50 ng/mL
Cocaine Metabolite 150 ng/mL
Fentanyl 1 ng/mL
Hydrocodone / Hydromorphone 300 ng/mL
Methadone Metabolite 100 ng/mL
Morphine / Codeine 300 ng/mL
Oxycodone / Oxymorphone 100 ng/mL

Screening results are presumptive and can only be used for medical purposes. Positive screening results are reflexed to confirmatory testing. Observation Date Value Abnormality Reference (Units ) Status Amphetamines, Urine screen 11/27/2023 22:07:37 Negative Negative Final Benzodiazepines, Urine screen 11/27/2023 22:07:37 Negative Negative Final Cannabinoids, Urine screen 11/27/2023 22:07:37 Negative Negative Final Cocaine Metabolite, Urine screen 11/27/2023 22:07:37 Negative Negative Final fentaNYL [Presence] in Urine by Screen method 11/27/2023 22:07:37 Negative Negative Final HYDROcodone [Presence] in Urine by Screen method 11/27/2023 22:07:37 Negative Negative Final 1-Bijfvnxnpf-4,5-Dimeth yl-3,3-Diphenylpyrrolid ine (EDDP) [Presence] in Urine 11/27/2023 22:07:37 Negative Negative Final Opiates, Urine screen 11/27/2023 22:07:37 Negative Negative Final oxyCODONE [Presence] in Urine by Screen method 11/27/2023 22:07:37 Negative Negative Final Performing Location LABORATORY [facility] - [address] [place] [address]
--- OUTSIDE RECORDS SUMMARY | 2023-12-09 17:44 | External Medical Summary ---
Author Name Unknown Address Unknown Organization K1F:LABORATORY [facility] - [address] [place] [address] Laboratory Report Ordering Provider Test Date Status BETTE CARDENAS 11/27/2023 20:35:46 Final Warfarin Therapy
INR: 2 .0-3.0 conventional anticoagulation
INR: 2.5- 3.5 high intensity anticoagulation Observation Date Value Abnormality Reference (Units ) Status PT 11/27/2023 20:35:46 12.3 11.6-15.2 (seconds) Final INR 11/27/2023 20:35:46 0.9 0.8-1.2 Final Performing Location LABORATORY [facility] - [address] [place] [address]
--- OUTSIDE RECORDS SUMMARY | 2023-12-09 17:44 | External Medical Summary ---
Author Name Unknown Address Unknown Organization K1F:LABORATORY [facility] - [address] [place] [address] Laboratory Report Ordering Provider Test Date Status BETTE CARDENAS 11/27/2023 19:54:47 Final Observation Date Value Abnormality Reference (Units ) Status Lactic Acid, Whole Blood 11/27/2023 19:54:47 2.9 Above high normal 0.4-2.0 (mmol/L) Final Performing Location LABORATORY [facility] - [address] [place] [address]
--- OUTSIDE RECORDS SUMMARY | 2023-12-09 17:44 | External Medical Summary ---
Author Name Unknown Address Unknown Organization K1F:LABORATORY [facility] - [address] [place] [address] [address] [place] [address] Laboratory Report Ordering Provider Test Date Status BETTE CARDENAS 11/27/2023 22:07:37 Final Observation Date Value Abnormality Reference (Units ) Status Color of Urine by Auto 11/27/2023 22:07:37 Yellow Light Yellow, Yellow, Dark Yellow Final Clarity, Urine 11/27/2023 22:07:37 Clear Clear Final Glucose [Mass/volume] in Urine by Automated test strip 11/27/2023 22:07:37 Negative Negative (mg/dL) Final Bilirubin.total [Presence] in Urine by Automated test strip 11/27/2023 22:07:37 Negative Negative Final Ketones [Mass/volume] in Urine by Automated test strip 11/27/2023 22:07:37 Negative Negative (mg/dL) Final Specific gravity, Urine 11/27/2023 22:07:37 1.044 Above high normal 1.003-1.030 Final Hemoglobin [Presence] in Urine by Automated test strip 11/27/2023 22:07:37 Trace Abnormal Negative Final pH, Urine 11/27/2023 22:07:37 6.0 5.0-7.5 (Units) Final Protein [Mass/volume] in Urine by Automated test strip 11/27/2023 22:07:37 Negative Negative (mg/dL) Final Urobilinogen [Mass/volume] in Urine by Automated test strip 11/27/2023 22:07:37 0.2 0.2, 1.0 (mg/dL) Final Nitrite [Presence] in Urine by Automated test strip 11/27/2023 22:07:37 Negative Negative Final Leukocyte esterase [Presence] in Urine by Automated test strip 11/27/2023 22:07:37 Negative Negative Final Performing Location LABORATORY [facility] - [address] [place] [address]
--- OUTSIDE RECORDS SUMMARY | 2023-12-09 17:44 | External Medical Summary ---
Author Name Unknown Address Unknown Organization K1F:LABORATORY [facility] - [address] [place] [address] Laboratory Report Ordering Provider Test Date Status BETTE CARDENAS 11/27/2023 22:07:37 Final Observation Date Value Abnormality Reference (Units ) Status RBC, Urine 11/27/2023 22:07:37 3-5 Abnormal 0-2 (/HPF) Final WBC, Urine 11/27/2023 22:07:37 0-2 0-2 (/HPF) Final Bacteria [#/area] in Urine sediment by Microscopy high power field 11/27/2023 22:07:37 26-50 Abnormal 0-25 (/HPF) Final Performing Location LABORATORY [facility] - [address] [place] [address]
--- NOTE | 2023-12-10 02:35 | Billing Data ---
Date of Service December 10, 2023 Coding Level of Care Code 58028 IN/OBS CONSULT LVL 3,45M
--- OUTSIDE RECORDS SUMMARY | 2023-12-10 02:39 | External Medical Summary | Continuity of Care Document ---
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 Name Role Phone Juana Bustos Primary Care Physician [phone] Encounter [facility] [id number] Date(s): 12/06/23 - 12/06/23 [facility] [place] [id number] [address] [place] [id number] Encounter Diagnosis Clavicle fracture(Discharge Diagnosis) - 12/06/23 Discharge Disposition: Home or Self Care Attending Physician: ZEESHAN Mata, Annabel Referring Physician: MD Tk, Clinton A Allergies, Adverse Reactions, Alerts Substance Criticality Severity Reaction Reaction Severity Status azithromycin Nausea Generalized aches and pains Active Immunizations Given and Recorded Vaccine Date Status Refusal Reason tetanus/diphtheria/pertuss, acel (Tdap) 1 05/11/15 Recorded 1Result Comment: 2020-03-10: Historical information-source unspecified Medications dilTIAZem 30 mg oral tablet Start: 06/13/23 4:01:00 PM EST, 1 tab, PO, bid, Disp# 180 tab, Refills: 3, Pharmacy: [facility] Start Date: 06/13/23 Status: Ordered Eliquis 2.5 mg oral tablet Start: 12/07/23 2:44:00 PM EDT, 1 tab, PO, bid, Disp# 28 tab, Pharmacy: [facility] Start Date: 12/07/23 Stop Date: 12/21/23 Status: Ordered loratadine Start: 04/04/23 2:56:00 PM EDT, 5 mg =, PO, Daily, PRN: as needed for allergy symptoms Start Date: 04/04/23 Status: Ordered oxyCODONE 5 mg oral tablet Start: 12/06/23 2:47:00 PM EDT, 1 tab, PO, q4h, Disp# 18 tab, Refills: 0, Note to Pharmacy: initial therapy, PRN: as needed for pain, Pharmacy: [facility] Start Date: 12/06/23 Status: Ordered venlafaxine 25 mg oral tablet Start: 11/14/23 7:55:00 AM EDT, 0.5 tab, PO, Daily, Disp# 45 tab, Refills: 1, Pharmacy: [facility] Start Date: 11/14/23 Status: Ordered Vitamin B12 50 mcg oral tablet Start: 12/01/23 3:56:00 PM EDT, 1 tab, PO, Daily Start Date: 12/01/23 Status: Ordered Vitamin D3 Start: 11/29/22 2:41:00 PM EDT, 50 mcg =, PO, Daily Start Date: 11/29/22 Status: Ordered Mental Status 12/06/23 Barriers to Learning one year None evide nt Mandatory Health Literacy Documentation Yes Health Literacy Communication Barriers N ever Primary Language Iranian Problem List Condition Confirmation Course Effective Dates [...] inical Service Informant Clavicle fracture Discharge Diagnosis 12/06/23 Procedures Procedure Date Related Diagnosis Body Site [...] Most recent to oldest [Reference Range]: 1 Temperature [36.5-37.9 DegC] 36.5 DegC (12/06/23 9:00 AM) Heart Rate 70 bpm (12/06/23 9:00 AM) Blood Pressure 118/74mmHg (12/06/23 9:00 AM) Cuff Pulse Pressure 44 mmHg (12/06/23 9:00 AM) Social History Social History Type Response Smoking Status Never smoked cigaret tri Sex Female History and physical note * ZEESHAN Mata [place]: PERFORM Event Display: . Authored Date: [id number] Primary Care Provider ROSEANNE Bustos Tara Referring Provider MD Tk, Clinton A Chief Complaint L clavicle pre op History of Present Illness Patient is a 58-year-old female here today for preoperative history and physical forleft clavicleopen reduction internal fixation with Dr. Frey. She fell in a 5-foot hole on 11/27/2023 and has previously broken her left clavicle about 35 years ago. Patient has muscle achiness and soreness but is not in pain. She sees a bacteriology teacher for mild tachycardia. 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 She is not on any blood thinners and reports relief with Tylenol.Patient has been sleeping in a recliner. [1] she says that her swelling and bruising has slightly improved. She has been wearing her sling. She continue her elbowtomove around occasionally throughout the day. She was cleared by her bacteriology teacher for surgery. 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 Her PCP is reaching out hematology to see if patient needs to be anticoagulatedafter her surgery. Review of Systems DeniesRecent illnesses, colds/flu, pneumonia, COVID or COVID exposures; DeniesFevers, chills, malaise; DeniesChest pain, heart palpitations; DeniesShortness of breath, cough; DeniesHeadacheor blurry vision; DeniesAbdominal pain, nausea, vomiting, diarrhea, or urinary symptoms Physical Exam Vitals & Measurements T:36.5C HR:70(Monitored) BP:118/74 SpO2:98% General: Pt is well nourished, seated on the exam table AA&O, in NAD, calm and cooperative during exam HENT: Nontraumatic, no gross deformity, hearing and vision grossly in-tact, PERRL Heart: +S1, +S2, RRR, no murmurs appreciated Lungs: CTABL, no wheezing appreciated Focusing on the patient'sleftupper extremity: Pt is in slingthat is fitting appropriately 2+ radial pulse Sensation in tact distally to light touch Motor to the median, radial, ulnar, AIN, PIN, musculocutaneous nervesis intact Full range of motion of their elbow, forearm, and wrist Able to externally rotate, abduct, and extend shoulder Able to palpate the medial edge of the fracture Skin is otherwise intact. [2] Diagnostic Results X-ray imaginviews of theleft clavicle and several views of the left shoulderobtained on 11/29/2023 at [facility] displaced [facility]- type deformity clavicle fracture that is comminuted, butterfly fracture consisting of 2 components. Left shouldermultiple viewsalso obtained 11/29/2023 at[facility]showed thedisplaced Z-typedeformity, clavicle fracture. [3] Assessment/Plan 1.Clavicle fracture pre op The risks and benefits of surgery as well as the post operative course was explained and discussed with the patient. Written consent obtained. The patient's past medical history, surgeries, social history, medication list, allergies and PDMP were reviewed and confirmed with the patient. Patientwill needmedical and cardiac clearance. She obtained cardiac clearancefrom Dr. Myles EKG was completedJanuary 16, 2023. Per cardiology she had a stress echo within the past year that was negative for any ischemic disease. At her PCP appointment it was found that she had factor V deficiency and PCP is reaching out to hematology to see if patient needs to be anticoagulated after surgery.Preoperative orders were placed. We discussed postoperative pain medications includingoxycodone, tylenol,as well as icing and elevating to control pain. DVT prophylaxis -will wait to hear from PCP afterthey hear recommendations from hematology. Additional medications -stool softener as n eeded to prevent constipation while on narcotics. The patient has been scheduled for post operativeappointments. She will need to begin physical therapy3 to 7 days after her surgery. The patient was given a preoperative booklet and we reviewed the most pertinent things leading up to the surgery and the day of surgery; including any assisted devices pt may need, when/who to call for the surgery time, where to arrive the day of surgery, NPO after midnight, medications to hold, prepping theskin with CHG to prevent infection etc. All of their questions and concerns were answered today. They were instructed to call our office if they have any further questions or concerns. Problem List/Past Medical History Ongoing Ataxia Cervicalgia Chronic GERD Disturbance of skin sensation Fall Family history of factor V deficiency Fatigue Fracture of left clavicle Neuritis Nodule of right lung Tingling sensation Resolved Acute recurrent sinusitis Earache symptoms in right ear Fever Great toe pain Nonhealing skin ulcer Pain in heel Rash and nonspecific skin eruption Factor V Deficiency Procedure/Surgical History Diagnostic mammogram| Service Date: 01/26/2023MRI of brain| Service Date: 3Chest CT Diagnostic w/o con| Service Date: 2CXR - Chest X-ray| Service Date: 08/10/2021X-ray of cervical spine| Service Date: 08/10/2021creening mammogram of bilateral breasts| Service Date: 1CT of chest without contrast| Service Date: 02/24/2021have [...] due01/20/23and every 1year Due Adult COVID-19 Vaccination due12/06/23Unknown Frequency Adult Social Determinants of Health Screening due12/06/23Unknown Frequency Shingles Vaccine due12/06/23One-time only Due In Future Cervical Cancer Screening not due until07/28/24and every 5year Body Mass Index not due until12/01/24and every day Satisfied(in the past 1 year) Satisfied Body Mass Index on12/01/23.Satisfied by ANGEL LUIS Fisher Bobbi Hepatitis C Screening on12/21/22.Satisfied by Contributor_system, [email or web address] Lipid Screening on12/21/22.Satisfied by Contributor_system, [email or web address] [1]Clinton Frey; Mita Hassan 11/30/2023 12:58 EDT [2]Clinton Frey; Mita Hassan 11/30/2023 12:58 EDT [3]Clinton Frey; Mita Hassan 11/30/2023 12:58 EDT Electronic Signature on File Electronically Reviewed/Signed by: Annabel Mata PA-C Author Signature Dt/Tm:12/06/2023 02:42 PM Physician Gleason Operator, Dept. of Orthopaedics and Sports Medicine [facility] - [address], [address] [place] [address] Electronically Reviewed/Signed by: Clinton Frey MD Cosigner Signature Dt/Tm: 12/06/2023 06:11 PM [facility] Emergency Room Technician Department of Orthopaedics and Rehabilitation [facility] [address], [place] [address] [place] Patient Care team information Care Team Personnel Name: ROSEANNE Bustos Tara Position: Nurse Pract - Family Med Member Role: Primary Care Provider Address: Address: [address] [place] [id number] [place] Name: ROSEANNE Bryan Terra L Position: Nurse Pract - Vascular Surg Member Role: Lifetime Relationship Address: Address: [address] [place] [address] [place] Care Team Related Persons Name: LEYDA SPICER Address: home [address] [place] [phone] Name: LEYDA SPICER Address: home [address] [place] [phone] Name: SARA SPICER Address: [place] Address: home [address] [place] [phone]"
--- NOTE | 2023-12-11 13:49 | Discharge Summary ---
Date of Service December 11, 2023 Admission HPI Per Admitting Provider Patient is a 58 yo female who underwent ORIF of her left clavicle fracture and post-op was dizzy, nausea, and was unable to ambulate; so she was admitted for observation overnight. Admission Exam (Per Admitting) Constitutional see HPI Specialty Data Orthopedic LUE: Dressing was clean, dry, intact. Neurovascularly intact. Sling in place. Discharge Data Consultations 12/08/23 19:12 Consult Hospitalist Routine Procedures Performed Operation Date: 12/08/23 13:30 Actual Procedures p Left Clavicle Open Reduction Internal Fixation(Left) - Clinton Frey MD Hospital Course (1) Closed fracture of left clavicle: s/p ORIF L clavicle, 12/08/23 was admitted overnight due to dizziness, nausea, and inability to ambulate. By the next morning she was feeling much better and pain controlled with Tylenol. Continued with the following treatment: Resume diet. WBAT BLE, NWB LUE. Sling for comfort OOB to chair. Continue pain control, using Tylenol. DVT prophylaxis: TEDs 3 weeks, foot pumps while in hospital, Eliquis 2.5 mg BID for 2 weeks, as recently diagnosed with Factor V Leiden. PT/OT. D/C home after passing PT 12/09/23. Will follow up in the office for PT and post-op appointments as scheduled.
== END 2023-12-09 11:10 | disposition home or self-care (01) ==
LOC: 3N 11:30 → ASU 11:30 → SUATTDRO 19:03